=== PATIENT | female | born 1965 | race Caucasian/White ===

== ENCOUNTER 2016-12-14 16:20 | Emergency (ER) | payer MEDICARE, MEDICAID ==
[2016-12-14 16:45] VITALS: BP 137/80
--- NOTE | 2016-12-14 17:07 | UC ---
UC Dental HPI - HPI Summary HPI Summary: Left upper gum check pain worsening over the week hurts to use her bipap at night no uri sx - History of Current Complaint Chief Complaint: UCGeneralIllness Stated Complaint: DENTAL PAIN Time Seen by Provider: 12/14/16 16:53 Hx Obtained From: Patient Hx Last Menstrual Period: 11/24/16 ?: No Onset/Duration: Gradual Onset, Lasting Weeks - 1, Still Present Severity: Moderate Pain Intensity: 5 Pain Scale Used: 0-10 Numeric Aggravating: Chewing Alleviating: Nothing Related History: Swelling - Allergies/Home Medications Allergies/Adverse Reactions: Allergies Allergy/AdvReac Type Severity Reaction Status Date / Time No Known Allergies Allergy Verified 11/02/13 07:55 Home Medications: Home Medications Cholecalciferol [Vitamin D] 4,000 12/14/16 [History] PMH/Surg Hx/FS Hx/Imm Hx Previously Healthy: No - Obesity Endocrine History Of: Reports: Diabetes - TYPE II - ON ORAL MEDICATION FOR Cardiovascular History Of: Reports: Cardiac Disorders - Cardiomegaly, Hypertension - ON MEDICATION FOR Respiratory History Of: Reports: Asthma - ROUTINE AND PRN INHALERS Psychological History Of: Reports: Anxiety - ROUTINE AND PRN MEDICATION FOR, Depression - ROUTINE AND PRN MEDICATION FOR - Surgical History Surgical History: Yes Surgery Procedure, Year, and Place: UMBILICAL HERNIA REPAIR-[facility]-. Right ganglion cyst. Appendectomy - Family History Known Family History: Positive: Hypertension, Diabetes - Social History Occupation: Disabled Lives: Alone Alcohol Use: Weekly Alcohol Amount: one drink weekly Substance Use Type: None Smoking Status (MU): Never Smoked Tobacco Have You Smoked in the Last Year: No Review of Systems Constitutional: Negative Skin: Negative Eyes: Negative ENT: Dental Pain - left upper lateral teeth and jaw Respiratory: Negative Cardiovascular: Negative Gastrointestinal: Negative Genitourinary: Negative Motor: Negative Neurovascular: Negative Musculoskeletal: Negative Neurological: Negative Psychological: Negative All Other Systems Reviewed And Are Negative: Yes Physical Exam Triage Information Reviewed: Yes Appearance: Well-Appearing, Pain Distress - mild, Obese Vital Signs: Initial Vital Signs Temp 96.8 F 12/14/16 16:34 Pulse 92 12/14/16 16:34 Resp 22 12/14/16 16:34 BP 137/80 12/14/16 16:34 Pulse Ox 100 12/14/16 16:34 Vital Signs Reviewed: Yes Eye Exam: Normal Eyes: Positive: Conjunctiva Clear ENT Exam: Normal ENT: Positive: Normal ENT inspection, Hearing grossly normal, Pharynx normal, TMs normal. Negative: Nasal congestion, Nasal drainage, Tonsillar swelling, Tonsillar exudate, Trismus, Muffled/hoarse voice Dental Exam: Other Dental: Positive: Abscess @ - upper left lateral jaw Neck exam: Normal Neck: Positive: Supple, Nontender, No Lymphadenopathy Respiratory Exam: Normal Respiratory: Positive: Chest non-tender, Lungs clear, Normal breath sounds, No respiratory distress, No accessory muscle use Cardiovascular Exam: Normal Cardiovascular: Positive: RRR, No Murmur, Pulses Normal, Brisk Capillary Refill Musculoskeletal Exam: Normal Musculoskeletal: Positive: Strength Intact, ROM Intact, No Edema Neurological Exam: Normal Neurological: Positive: Alert, Muscle Tone Normal Psychological Exam: Normal Skin Exam: Normal Dental Complaint Course/Dx - Course Course Of Treatment: Amoxilillin follow with dentist pain meds as rx'd follow with dentist this week - Differential Dx/Diagnosis Differential Diagnosis/Dx: Dental Abscess, Dental Caries, Fractured Tooth, Odontogenic Pain Provider Diagnoses: Dental Pain, Dental Abscess Discharge - Discharge Plan Condition: Stable Disposition: HOME Prescriptions: Amoxicillin/Clavulanate TAB* [Augmentin TAB 875*] 875 mg PO BID #20 tab Patient Education Materials: Dental Abscess (ED) Referrals: Barbra Meredith MD [Primary Care Provider] - If Needed
== END 2016-12-14 17:15 | disposition home or self-care (01) ==
LOC: UCEAST 16:20
DX: K04.7 Periapical abscess without sinus (principal); K08.89 Other specified disorders of teeth and supporting structures; E11.9 Type 2 diabetes mellitus without complications; Z79.84 Long term (current) use of oral hypoglycemic drugs; I10 Essential (primary) hypertension
CPT/HCPCS: 99212; G0463

== ENCOUNTER 2019-09-07 10:38 | Inpatient (IN) | payer MEDICARE, MEDICAID ==
[2019-09-07] MEDS ORDERED: NS 0.9% 1000 ML** 1,000 ML IV ONE ×2 (10:48→11:59)
[2019-09-07 11:19] LABS: Hematocrit 39 % (35-47); Hemoglobin 12.9 g/dL (12.0-16.0); Mean Corpuscular HGB Conc 33 g/dL (31-36); Mean Corpuscular Hemoglobin 27 pg (27-31); Mean Corpuscular Volume 80 fL (80-97); Red Blood Count 4.88 10^6 /uL (3.70-4.87); Red Cell Distribution Width 16 % (10-15); White Blood Count 14.3 10^3/uL (3.5-10.8)
[2019-09-07 11:53] LABS: Albumin 3.2 g/dL (3.2-5.2); Albumin/Globulin Ratio 0.9 (1-3); BUN/Creatinine Ratio 30.7 (8-20); C Reactive Protein 332.66 mg/L (<8.01); Calcium 8.9 mg/dL (8.6-10.3); EGFR African American 20.1 (>60); EGFR Non-African American 16.6 (>60); Globulin 3.4 g/dL (2-4); Potassium 4.6 mmol/L (3.5-5.0); Total Bilirubin 1.3 mg/dL (0.2-1.0); Total Protein 6.6 g/dL (6.4-8.9)
[2019-09-07 11:56] LABS: ABS Eosinophils 0.2 10^3/ul (0-0.6); ABS Lymphocytes 0.5 10^3/ul (1.0-4.8); ABS Monocytes 0.5 10^3/ul (0-0.8); Eosinophil % 1.1 %; Lymphocyte % 3.8 %; Nucleated Red Blood Cells % 0.1; Platelet Count 62 10^3/uL (150-450)
[2019-09-07] MEDS ORDERED: Piperacillin/Tazobac ADVAN(*) 3.375 GM in NS 0.9% 100 ML* 100 ML IVPB ONE ×2 (13:11→14:34)
[2019-09-07] MEDS ORDERED: metroNIDAZOLE IV 500 MG/100ML* 500 MG/100 ML BAG IVPB ONE (13:16)
[2019-09-07] MEDS ORDERED: Vancomycin(*) 2,000 MG in NS 0.9% 500 ML* 500 ML IVPB ONE (13:16)
[2019-09-07] MEDS ORDERED: Vancomycin(*) 1,000 MG in NS 0.9% 250 ML* 250 ML IVPB ONE (14:34)
[2019-09-07 14:38] LABS: Urine Appearance Cloudy; Urine Bacteria 1+ (Absent); Urine Bilirubin Negative (Negative); Urine Blood 3+ (Negative); Urine Color Amber; Urine Glucose Negative (Negative); Urine Ketones Negative (Negative); Urine Nitrite Negative (Negative); Urine Protein 2+(100 mg/dL) (Negative); Urine Red Blood Cell 3+(>10/hpf) (Absent); Urine Specific Gravity 1.015 (1.010-1.030); Urine Squamous Epithelial Cell Present (Absent); Urine Urobilinogen Negative (Negative); Urine White Blood Cell 3+(>20/hpf) (Absent)
[2019-09-07] MEDS ORDERED: Albuterol HFA INHALER* 8 gm MDI INH PRN (14:52)
[2019-09-07] MEDS ORDERED: Dextrose 50% VIAL 50 ml IV PUSH PRN (14:54)
[2019-09-07] MEDS ORDERED: Vancomycin per Pharmacy* NOTE FOLLOW UP SCH (15:00)
[2019-09-07] MEDS ORDERED: Zosyn per Pharmacy* NOTE FOLLOW UP SCH (15:00)
[2019-09-07] MEDS ORDERED: NS 0.9% 1000 ML** 1,000 ML IV SCH (15:00)
--- NOTE | 2019-09-07 15:24 | CONSULT ---
Consult Consult: Consultation: General Surgery Chief Complaint: Left Hip Pain HPI:54 yo morbidly obese female presented to the ED C/O Left Hip pain. Reports being on Macrobid for a UTI since seeing her PMD last CT scan done in the ED showed questionable findings PMH: DM, ^ Chol, Anxiety/Depression, Asthma, Morbid Obesity, Sleep Apnea PSH: Ganglion Cyst SOCIAL: TOB denies ETOH denies DRUGS denies FAMILY HISTORY: Mother in good health, Father , prostate Cancer & Alzheimers ALLERGIES: NKDA MEDICATIONS: Per JAN ROS: C/O Left outer hip pain with ROM LLE, PHYSICAL EXAM: General: Morbidly Obese female seen on bed in ED, doesn't ambulate well, C/O left hip pain with attempt at movement for exam VS: Temp Pulse Resp BP Pulse Ox 97.6 F 109 24 95/77 95 09/07/19 10:42 09/07/19 13:44 09/07/19 10:42 09/07/19 13:44 09/07/19 13:44 HEENT: NCAT CHEST: CTA CVS: Tachycardic ABD: Morbidly Obese. Tender to palpation only in Left Inguinal region M/S: Tender to palp Left Hip Greater troch region, left hip pain with ROM LLE, no errythema NEURO: Grossly NL 12.9 129 94 91 LABS: 14.3 >-----< -----/------/------<322 Lactic Acid 1.7 CRP 332.66 39 4.6 21 2.96 Abnormal Lab Results 09/07/19 09/07/19 09/07/19 10:53 10:53 14:15 WBC 14.3 H RBC 4.88 H Hgb 12.9 Hct 39 MCV 80 MCH 27 MCHC 33 RDW 16 H Plt Count 62 L MPV Not Reportable Neut % (Auto) 91.3 Lymph % (Auto) 3.8 [place] % (Auto) 3.7 Eos % (Auto) 1.1 Baso % (Auto) 0.1 Absolute Neuts (auto) 13.0 H Absolute Lymphs (auto) 0.5 L Absolute Monos (auto) 0.5 Absolute Eos (auto) 0.2 Absolute Basos (auto) 0.0 Absolute Nucleated RBC 0.0 Nucleated RBC % 0.1 Sodium 129 L Potassium 4.6 Chloride 94 L Carbon Dioxide 21 L Anion Gap 14 H BUN 91 H Creatinine 2.96 H Est GFR ( Amer) 20.1 Est GFR (Non-Af Amer) 16.6 BUN/Creatinine Ratio 30.7 H Glucose 322 H Lactic Acid Calcium 8.9 Total Bilirubin 1.30 H AST 58 H ALT 64 H Alkaline Phosphatase 167 H C-Reactive Protein 332.66 H Total Protein 6.6 Albumin 3.2 Globulin 3.4 Albumin/Globulin Ratio 0.9 L Urine Color Svetlana Urine Appearance Cloudy Urine pH 5.0 Ur Specific [place] 1.015 Urine Protein 2+(100 mg/dl) A Urine Ketones Negative Urine Blood 3+ A Urine Nitrate Negative Urine Bilirubin Negative Urine Urobilinogen Negative Ur Leukocyte Esterase 3+ A Urine WBC (Auto) 3+(>20/hpf) A Urine RBC (Auto) 3+(>10/hpf) A Ur Squamous Epith Cells Present A Urine Bacteria 1+ A Urine Glucose Negative RESULTS: CT : IMPRESSION: 1. LIMITED STUDY. 2. THERE IS INFLAMMATORY CHANGE CENTERED WITHIN THE LEFT PELVIC SIDEWALL TRACKING FROM THE THIGH INTO THE PSOAS MUSCLE GAS DENSITY NOTED TRACKING ALONG THE MUSCULATURE. THIS MAY BE COMPOSITION OF RECENT INSTRUMENTATION OR MAY INDICATE THE PRESENCE OF A GAS FORMING ORGANISM. 3. ADDITIONALLY, THERE IS LEFT-SIDED HYDRONEPHROSIS WHICH MAY BE A COMPLICATION OF THE INFLAMMATORY/INFECTIOUS PROCESS OF THE LEFT LOWER QUADRANT. 4. GIVEN THE ABOVE FINDINGS, RECOMMEND CONSIDERATION OF FURTHER EVALUATION WITH CONTRAST-ENHANCED CT OF THE ABDOMEN AND PELVIS. 5. HEPATOMEGALY WITH FATTY INFILTRATION OF LIVER. 6. LEFT ADRENAL ADENOMA. ASSESSMENT: Left Hydronephrosis S/P UTI, Elevated WBC, CT Findings Left Psoas muscle soft tissue air, no abdominal source PLAN: CT was reviewed by Dr You with Radiology. Need for Urological Evaluation was determined. No surgical issues currently found. Possible need for transfer to Tertiary care facility due to patients body habitus. Above was D/W Patient, Dr You , and Mikhail SPENCER. Patient was also seen and examined by Dr You All questions were answered A total of 45 minutes was spent in examining patient, reviewing studies, clinical assessments.
[2019-09-07] MEDS: Morphine INJ* 2 MG/ML 1 ML SYRINGE (TWO MG - NEW SYRINGE VERSION) IV PRN ×3 (15:38→21:22)
--- NOTE | 2019-09-07 16:00 | CONSULT ---
Consult Consult: Consultation Note -- Critical Care Requesting Physician: Dr Patel Reason for consult: severe sepsis Limitations in history/physical: none Date of consult: 09/07/2019 HPI: 54y F w/pmhx of morbid obesity, DM, HLD, Depression/anxiety, asthma, sleep apnea; comes to ER for difficulty walking x2 days. She states Friday (4 days back) she had left hip pain, progressed to difficulty walking on Friday. Today unable to stand due to left hip pain. No back pain. Fevers+. No cough. SOB+. No sputum. No nausea/vom. Dec po intake+. Decreased urination, dark+.Was started on macrobid last for possible urine infection. In ER she was tachycardic, BP 130s, afebrile, RR 24, on RA. Started on sepsis protocol with 2L IVF bolus, IV abx zosyn. CT abd/pelvis demonstrated inflammatory change from left thigh to pelvis to left psoas muscle with gaseous formation, and noted to have left mild hydronephrosis. Surgery consulted and advised no acute surgical intervention at this time. Urology consulted and concerned about cysto given low plt count. ED/floor Course: as above ROS: negative except for pertinent positives mentioned above PMHx: DM, Morbid obesity, HLD, Depression, anxiety, asthma, sleep apnea PSHx: ganglion cyst removal Family History: none signficant Social History: Alcohol-denies, Smoking-denies, Drug use-denies Allergies: Allergies Allergy/AdvReac Type Severity Reaction Status Date / Time No Known Allergies Allergy Verified 11/02/13 07:55 Home Medications: Albuterol HFA INHALER* [Ventolin HFA Inhaler*] 2 puff INH Q4H PRN 10/22/13 [ History Confirmed 09/07/19] Fluticasone HFA 110 mcg(NF) [Flovent HFA 110 mcg(NF)] 2 puff INH BID 10/22/13 [ History Confirmed 09/07/19] LoraTADine TAB(NF) [Claritin 10 MG TAB(NF)] 10 mg PO DAILY 10/22/13 [History Confirmed 09/07/19] Naproxen TAB* [Naprosyn 375 mg TAB*] 375 mg PO QAM 10/22/13 [History Confirmed 09/07/19] Repaglinide TAB* [Prandin TAB*] 1 mg PO TID 10/22/13 [History Confirmed 09/07/19 ] Venlafaxine EXT RELEASE CAP* [Effexor Xr CAP*] 75 mg PO DAILY 10/22/13 [History Confirmed 09/07/19] Venlafaxine EXT RELEASE CAP* [Effexor Xr CAP*] 300 mg PO DAILY 10/22/13 [ History Confirmed 09/07/19] metFORMIN* [Glucophage 500 MG TAB *] 1,000 mg PO BID 10/22/13 [History Confirmed 09/07/19] Ezetimibe 10 mg PO DAILY 07/20/19 [History Confirmed 09/07/19] LORazepam TAB(*) [Ativan 0.5 MG TAB (*)] 1 mg PO BID 07/20/19 [History Confirmed 09/07/19] Losartan Potassium 1 tab PO DAILY 07/20/19 [History Confirmed 09/07/19] Simvastatin 80 mg PO BEDTIME 07/20/19 [History Confirmed 09/07/19] traMADol TAB* [Ultram*] 50 mg PO Q6HR PRN 07/20/19 [History Confirmed 09/07/19] Hemp Oil 1 drp SL DAILY 09/07/19 [History Confirmed 09/07/19] Multivitamins/Minerals TAB* [Theragran/minerals TAB*] 1 tab PO DAILY 09/07/19 [ History Confirmed 09/07/19] Nitrofurantoin Monohyd/M-Cryst [Macrobid 100 mg Capsule] 100 mg PO BID 09/07/19 [History Confirmed 09/07/19] Sitagliptin (NF) [Januvia (NF)] 50 mg PO DAILY 09/07/19 [History Confirmed 09/07] celeCOXIB CAP* [CeleBREX CAP*] 200 mg PO BID 09/07/19 [History Confirmed ] Tele: sinus tachy Vitals: Vital Signs Temp 97.6 F 09/07/19 10:42 Pulse 107 09/07/19 15:14 Resp 26 09/07/19 15:14 BP 118/77 09/07/19 15:14 Pulse Ox 97 09/07/19 15:14 Intake & Output 09/06/19 09/07/19 09/07/19 18:59 06:59 18:59 Weight 208.652 kg O2/Vent: RA Infusions: NS Current Medications: Albuterol (Ventolin Hfa Inhaler*) 2 puff INH Q4H PRN PRN Reason: SOB/WHEEZING Dextrose (Dextrose 50% Vial 50 Ml*) 25 ml IV PUSH .FOR FS < 60 - SS PRN PRN Reason: FS < 60 Fluticasone Propionate (Flovent Hfa 110 Mcg(Nf)) 2 puff INH BID [facility] Sodium Chloride (Ns 0.9% 1000 Ml) 1,000 mls @ 150 mls/hr IV PER RATE [facility] Piperacillin Sod/Tazobactam (Sod 3.375 gm/ Sodium Chloride) 100 mls @ 25 mls/ hr IVPB Q8H [facility] Insulin Glargine (Lantus(*)) 20 units SUBCUT Q24H [facility] Insulin Human Lispro (Humalog*) 0 units SUBCUT Q4HR [facility]; Protocol Lorazepam (Ativan Tab(*)) 1 mg PO BID [facility] Morphine Sulfate (Morphine Inj (Syringe))*) 1 mg IV Q1H PRN PRN Reason: SEVERE PAIN Pharmacy Consult (Vancomycin Per Pharmacy*) 1 note FOLLOW UP .VANC PER PHARMACY [facility]; Protocol Pharmacy Consult (Zosyn Per Pharmacy*) 1 note FOLLOW UP .ZOSYN PER PHARMACY [facility] Venlafaxine HCl (Effexor Xr Cap*) 300 mg PO DAILY [facility] Venlafaxine HCl (Effexor Xr Cap*) 75 mg PO DAILY [facility] Physical Exam: Constitutional: awake, alert, no distress, no diaphoresis, obese++ Head: normocephalic, atraumatic Eyes: no pallor, no icterus ENT: moist mucous membranes Neck: soft, supple, no jvd, no stridor CVS: normal rate, regular, no murmur Chest/Resp: bilateral air entry, no RRW, no acc muscle use Abdomen/GI: soft, tender lower quadrants+ nondistended, BS+ Ext/Msk: warm, pulses+, no edema; Left thigh tender+, no erythema/induration noted Skin: intact, warm Neuro: awake, alert, orientedx3, moving all extremities, no gross focal deficit Psych: normal affect Labs: Laboratory Results - last 24 hr 09/07/19 09/07/19 09/07/19 10:53 10:53 14:15 WBC 14.3 H RBC 4.88 H Hgb 12.9 Hct 39 MCV 80 MCH 27 MCHC 33 RDW 16 H Plt Count 62 L MPV Not Reportable Neut % (Auto) 91.3 Lymph % (Auto) 3.8 [place] % (Auto) 3.7 Eos % (Auto) 1.1 Baso % (Auto) 0.1 Absolute Neuts (auto) 13.0 H Absolute Lymphs (auto) 0.5 L Absolute Monos (auto) 0.5 Absolute Eos (auto) 0.2 Absolute Basos (auto) 0.0 Absolute Nucleated RBC 0.0 Nucleated RBC % 0.1 Sodium 129 L Potassium 4.6 Chloride 94 L Carbon Dioxide 21 L Anion Gap 14 H BUN 91 H Creatinine 2.96 H Est GFR ( Amer) 20.1 Est GFR (Non-Af Amer) 16.6 BUN/Creatinine Ratio 30.7 H Glucose 322 H Calcium 8.9 Total Bilirubin 1.30 H AST 58 H ALT 64 H Alkaline Phosphatase 167 H C-Reactive Protein 332.66 H Total Protein 6.6 Albumin 3.2 Globulin 3.4 Albumin/Globulin Ratio 0.9 L Urine Color Svetlana Urine Appearance Cloudy Urine pH 5.0 Ur Specific [place] 1.015 Urine Protein 2+(100 mg/dl) A Urine Ketones Negative Urine Blood 3+ A Urine Nitrate Negative Urine Bilirubin Negative Urine Urobilinogen Negative Ur Leukocyte Esterase 3+ A Urine WBC (Auto) 3+(>20/hpf) A Urine RBC (Auto) 3+(>10/hpf) A Ur Squamous Epith Cells Present A Urine Bacteria 1+ A Urine Glucose Negative Imaging: CT abd/pelvis 09/07 - inflammatory change left pelvic sidewall from thigh to psoas muscle with gas density; mild left hydronephrosis, left adrenal adenoma Assessment: 54y F w/pmhx of morbid obesity, DM, HLD, Depression/anxiety, asthma , sleep apnea; comes to ER for difficulty walking x2 days. She states Friday (4 days back) she had left hip pain, progressed to difficulty walking on Friday. Today unable to stand due to left hip pain. No back pain. Fevers+. No cough. SOB +. No sputum. No nausea/vom. Dec po intake+. Decreased urination, dark+.Was started on macrobid last for possible urine infection. In ER she was tachycardic, BP 130s, afebrile, RR 24, on RA. Started on sepsis protocol with 2L IVF bolus, IV abx zosyn. CT abd/pelvis demonstrated inflammatory change from left thigh to pelvis to left psoas muscle with gaseous formation, and noted to have left mild hydronephrosis. Surgery consulted and advised no acute surgical intervention at this time. Urology consulted and concerned about cysto given low plt count. -Severe Sepsis -Left thigh and psoas soft tissue infection -r/o nec fasc -Thrombocytopenia -ESTHER -Hyponatremia -Elevated LFTs -Mild Left hydronephrosis Obesity DM Sleep apnea Plan: Neuro- -alert -Delirium prec; avoid BDZ CVS- -BP stable, fluctuating low 100s; pendign LA level ; labs and imaging consistent with Severe Sepsis diagnosis -IVF bolus, cont IVF NS infusion 100cc/hr -check LA and trend -Empiric IV abx for deep soft tissue infection and +/- UTI -Maintain MAP>65 Resp- -Minimal tachypnea+; may be from metabolic demand -on RA now -nocturnal cpap for sleep apnea ordered -Wean Fio2 to keep sat>92% -Bronchodilators PRN, asp prec ID- afebrile. wbc 14. LA pending -CT abd/pelvis 09/07 with left thigh/pelvic ascending soft tissue infection; myositis? nec fasc? -blood cx -check urine cx also -empiric coverage with gram neg/pos and anaerobes; agree zosyn (day#1), vanco 2gm IV x1 (day#1), pharmacy to follow -will have surgical evaluation if required GI- -NPO for now -GI prophylaxis Renal- -ESTHER; multifactorial from sepsis, hypovolemia and left hydro/obstruction -IVF NS bolus 2 L; start NS infusion 100cc/hr -LA normal noted -Left hydro, may be associated with infection around psoas; urology followup; if hydro worse or UOP drops, may need intervention -noted low plt, will transfuse if cysto or perc neph needed, need to order from [place]. -discussed with urology; they recommend transfer to high level center -strict I/O, replete to keep K>4, Mg>2 -whyte + Heme- -hg stable -plt 60s; suspect this is acute drop from sepsis; no overt bleeding -if plan for OR will order plt transfusion -hold off chemical dvt proph Endo- Maintain BG<200, insulin protocol as needed Musculsk- pressure ulcer prophylaxis. Bedrest. -noted left thigh infection deep tissue with ascension to pelvis; d/w surgery; IV abx, unclear if this may progress and need repeat surgical interventions. They recommend transfer. Wounds- none Nutrition- NPO DVT prophylaxis: SCD GI prophylaxis: none indicated Central Line: - Arterial Line: - Whyte Cathetor: yes Disposition: discussed with surgery and with urology; at this time given possibility of deep infection which may even be nec fasc with potential for worsening and limitations of OR and possibility of worsenign clinical status recommendation for transfer to higher level of care with surgical evaluation and urological evaluation I discussed this with the patient who agrees. Patient Clinical Status: guarded Code Status: full code Total Critical Care time is 50 minutes, excluding procedures/teaching Uli Grijalva MD [employer] (Electronically Signed)
[2019-09-07] MEDS: NS 0.9% 1000 ML** 1,000 ML IV SCH ×2 (16:18→23:36)
[2019-09-07] MEDS: Insulin GLARGINE(*) 1 UNITS UNIT SUBCUT SCH (16:28)
--- NOTE | 2019-09-07 16:47 | PN ---
Progress Note - Progress Note Date of Service: 09/07/19 SOAP: Subjective: Patient seen and examined with TJ Mckeon History, workup and CT all reviewed Objective: Temp Pulse Resp BP Pulse Ox 97.8 F 108 19 122/70 91 09/07/19 15:46 09/07/19 15:46 09/07/19 16:30 09/07/19 16:30 09/07/19 16:30 PEX: Super morbidly obese Awake and alert, pleasant Abdomen [id number], no tenderness, no guarding, no peritoneal signs Left hip and upper thigh discomfort. Skin pink, no crepitance, skin changes, fluctuance or swelling. No drainage sites Labs reviewed--WBC elevated, elevated BUN/CR, thrombocytopenia, electrolyte derangements CT reviewed with radiology--no apparent intra-abdominal acute findings, enlarged left kidney with inflammation left retroperitoneum and left lateral pelvic wall, inflammation extending along left psoas muscle into upper lateral thigh--air bubbles noted in soft tissue, no obvious abscess. No apparent bowel involvement. Assessment: Sepsis CT findings as above Plan: Discussed with Dr. Patel, Dr. Yi ([employer]) and ER. No intra-abdominal source obvious for sepsis, possible urologic source. Concern is also with air and inflammation into soft tissue, may represent fulminant soft tissue infection -not certain etiology, possibly related to urinary source? She will require intensive care support. My recommendation would be transfer to a higher level of care due to her sepsis, morbid obesity, ARF and possible fulminant soft tissue infection that may require emergent surgical debridement and multiple surgical procedures for optimal care. This is not something that can be adequately managed here at [facility] [place]. I do not believe a laparotomy is indicated. Thank you for this consultation.
[2019-09-07 17:34] LABS: Urine Appearance Cloudy; Urine Bacteria 1+ (Absent); Urine Bilirubin Negative (Negative); Urine Blood 3+ (Negative); Urine Color Amber; Urine Glucose Negative (Negative); Urine Ketones Negative (Negative); Urine Nitrite Negative (Negative); Urine Protein 1+(30 mg/dL) (Negative); Urine Red Blood Cell 3+(>10/hpf) (Absent); Urine Specific Gravity 1.015 (1.010-1.030); Urine Squamous Epithelial Cell Present (Absent); Urine Urobilinogen Negative (Negative); Urine White Blood Cell 3+(>20/hpf) (Absent)
--- NOTE | 2019-09-07 17:51 | ED ---
Abdominal Pain/Female - HPI Summary HPI Summary: Patient is a 54-year-old female who presents emergency department for left hip pain and ongoing urinary symptoms. Patient states she started on of Macrobid for UTI on Friday. Denies any falls or injuries. Patient denies abdominal pain , fever, chest pain, shortness of breath. Symptoms are mild in severity. No current modifying factors. Past medical history of morbid obesity, diabetes. - History of Current Complaint Chief Complaint: EDUrogenitalProblems Stated Complaint: HIP PAIN / UTI PER EMS Time Seen by Provider: 09/07/19 10:40 Hx Obtained From: Patient Hx Last Menstrual Period: 11/24/16 Pain Intensity: 6 Pain Scale Used: 0-10 Numeric Allergies/Adverse Reactions: Allergies Allergy/AdvReac Type Severity Reaction Status Date / Time No Known Allergies Allergy Verified 11/02/13 07:55 Home Medications: Home Medications Hemp Oil 1 drp SL DAILY 09/07/19 [History Confirmed 09/07/19] Multivitamins/Minerals TAB* [Theragran/minerals TAB*] 1 tab PO DAILY 09/07/19 [ History Confirmed 09/07/19] Nitrofurantoin Monohyd/M-Cryst [Macrobid 100 mg Capsule] 100 mg PO BID 09/07/19 [History Confirmed 09/07/19] Sitagliptin (NF) [Januvia (NF)] 50 mg PO DAILY 09/07/19 [History Confirmed 09/07] celeCOXIB CAP* [CeleBREX CAP*] 200 mg PO BID 09/07/19 [History Confirmed ] PMH/Surg Hx/FS Hx/Imm Hx Previously Healthy: Yes Endocrine/Hematology History: Reports: Hx Diabetes - TYPE II - ON ORAL MEDICATION FOR Cardiovascular History: Reports: Hx Hypercholesterolemia, Hx Hypertension Respiratory History: Reports: Hx Asthma - ROUTINE AND PRN INHALERS, Hx Sleep Apnea - CPAP at home, Other Respiratory Problems/Disorders - PRN O2 WHEN SOB per pt report GI History: Comment Only: Other GI Disorders - ventral hernia repair Musculoskeletal History: Reports: Hx Arthritis - LEFT KNEE AND HIP, HANDS Sensory History: Reports: Hx Contacts or Glasses Denies: Hx Hearing Aid Opthamlomology History: Reports: Hx Contacts or Glasses Psychiatric History: Reports: Hx Anxiety - ROUTINE AND PRN MEDICATION FOR, Hx Depression - ROUTINE AND PRN MEDICATION FOR - Surgical History Surgery Procedure, Year, and Place: UMBILICAL HERNIA REPAIR-[facility] [place]-. Right ganglion cyst. Appendectomy Hx Anesthesia Reactions: No Infectious Disease History: No Infectious Disease History: Denies: Traveled Outside the [place] in Last 30 Days - Family History Known Family History: Positive: Hypertension, Diabetes, Non-Contributory - Social History Occupation: Unemployed Lives: With Family Alcohol Use: None Alcohol Amount: one drink weekly Substance Use Type: Reports: None Smoking Status (MU): Never Smoked Tobacco Have You Smoked in the Last Year: No Review of Systems Constitutional: Negative Cardiovascular: Negative Negative: Palpitations, Chest Pain Respiratory: Negative Negative: Shortness Of Breath Gastrointestinal: Negative Positive: dysuria Positive: Other - Left hip pain Skin: Negative Neurological: Negative All Other Systems Reviewed And Are Negative: Yes Physical Exam Triage Information Reviewed: Yes Vital Signs On Initial Exam: Initial Vitals Temp Pulse Resp BP Pulse Ox 97.6 F 114 24 131/53 94 09/07/19 10:42 09/07/19 10:42 09/07/19 10:42 09/07/19 10:42 09/07/19 10:42 Vital Signs Reviewed: Yes Appearance: Positive: Well-Appearing - Pt. lying on bed in NAD. Morbidly obese. Skin: Positive: Warm, Dry Head/Face: Positive: Normal Head/Face Inspection Eyes: Positive: Normal, EOMI Neck: Positive: Supple Respiratory/Lung Sounds: Positive: Clear to Auscultation, Breath Sounds Present Cardiovascular: Positive: Normal, RRR Abdomen Description: Positive: Other: - Morbidly obese. Abd. is soft with marked tenderness to LLQ and LUQ. Musculoskeletal: Positive: Normal, Strength/ROM Intact Neurological: Positive: Normal, CN Intact II-III Psychiatric: Positive: Affect/Mood Appropriate Diagnostics - Vital Signs Vital Signs Temp Pulse Resp BP Pulse Ox 09/07/19 14:14 91/69 09/07/19 13:44 109 95/77 95 09/07/19 13:31 109 97 09/07/19 13:30 109 98/82 95 09/07/19 12:00 111 95 09/07/19 11:14 133/88 09/07/19 11:00 115 88 09/07/19 10:44 115 131/53 95 09/07/19 10:43 116 98 09/07/19 10:42 97.6 F 114 24 131/53 94 - Laboratory Lab Results: Lab Results 09/07/19 09/07/19 09/07/19 Range/Units 10:53 10:53 14:15 WBC 14.3 H (3.5-10.8) 10^3/uL RBC 4.88 H (3.70-4.87) 10^6 /uL Hgb 12.9 (12.0-16.0) g/dL Hct 39 (35-47) % MCV 80 (80-97) fL MCH 27 (27-31) pg MCHC 33 (31-36) g/dL RDW 16 H (10-15) % Plt Count 62 L (150-450) 10^3/uL MPV Not Reportable Neut % (Auto) 91.3 % Lymph % (Auto) 3.8 % [place] % (Auto) 3.7 % Eos % (Auto) 1.1 % Baso % (Auto) 0.1 % Absolute Neuts (auto) 13.0 H (1.5-7.7) 10^3/ul Absolute Lymphs (auto) 0.5 L (1.0-4.8) 10^3/ul Absolute Monos (auto) 0.5 (0-0.8) 10^3/ul Absolute Eos (auto) 0.2 (0-0.6) 10^3/ul Absolute Basos (auto) 0.0 (0-0.2) 10^3/ul Absolute Nucleated RBC 0.0 10^3/ul Nucleated RBC % 0.1 Hem Pathologist Commnt Sodium 129 L (135-145) mmol/L Potassium 4.6 (3.5-5.0) mmol/L Chloride 94 L (101-111) mmol/L Carbon Dioxide 21 L (22-32) mmol/L Anion Gap 14 H (2-11) mmol/L BUN 91 H (6-24) mg/dL Creatinine 2.96 H (0.51-0.95) mg/dL Est GFR ( Amer) 20.1 (>60) Est GFR (Non-Af Amer) 16.6 (>60) BUN/Creatinine Ratio 30.7 H (8-20) Glucose 322 H (70-100) mg/dL Calcium 8.9 (8.6-10.3) mg/dL Total Bilirubin 1.30 H (0.2-1.0) mg/dL AST 58 H (13-39) U/L ALT 64 H (7-52) U/L Alkaline Phosphatase 167 H (34-104) U/L C-Reactive Protein 332.66 H (<8.01) mg/L Total Protein 6.6 (6.4-8.9) g/dL Albumin 3.2 (3.2-5.2) g/dL Globulin 3.4 (2-4) g/dL Albumin/Globulin Ratio 0.9 L (1-3) Urine Color Svetlana Urine Appearance Cloudy Urine pH 5.0 (5-9) Ur Specific [place] 1.015 (1.010-1.030) Urine Protein 2+(100 mg/dl) A (Negative) Urine Ketones Negative (Negative) Urine Blood 3+ A (Negative) Urine Nitrate Negative (Negative) Urine Bilirubin Negative (Negative) Urine Urobilinogen Negative (Negative) Ur Leukocyte Esterase 3+ A (Negative) Urine WBC (Auto) 3+(>20/hpf) A (Absent) Urine RBC (Auto) 3+(>10/hpf) A (Absent) Ur Squamous Epith Cells Present A (Absent) Urine Bacteria 1+ A (Absent) Urine Glucose Negative (Negative) Result Diagrams: 09/07/19 10:53 09/07/19 10:53 Lab Statement: Any lab studies that have been ordered have been reviewed, and results considered in the medical decision making process. Abdominal Pain Fem Course/Dx - Course Course Of Treatment: Pt. presenting with complaints of dysuria and left hip pain. Afebrile. Mildly tachycardic. On exam pt. has moderate tenderness to left side of abd. Labs and CT ordered for further evaluation. WBC 14.3, platelets 62 , Na 129, cl 94, anion gap 14, BUN 91, cr. 2.96, glucose 322, LFTs slightly elevated, CRP 332. CT per radiology: IMPRESSION: 1. LIMITED STUDY. 2. THERE IS INFLAMMATORY CHANGE CENTERED WITHIN THE LEFT PELVIC SIDEWALL TRACKING FROM. THE THIGH INTO THE PSOAS MUSCLE GAS DENSITY NOTED TRACKING ALONG THE MUSCULATURE. THIS MAY. BE COMPOSITION OF RECENT INSTRUMENTATION OR MAY INDICATE THE PRESENCE OF A GAS FORMING. Case discussed with Dr. Roman who recommends starting pt. on vanco, zosyn, and flagyl. Case discussed initially with Dr. You, surgery, at 1259. He will see pt. in ED but does not feel it is a surgical case at this time but he will exam pt. in ED. Case discussed with Dr. Wheeler, uro., at 1319. He feels pt. may need nephro tube or stent given hydro. He recommends consultation with IR. Case discussed with Dr. Helm who does not feel neph tube is indicated at this time. Case discussed with Dr. Grijalva , histopathology technician, who feels pt. can be admitted to the floor. Case discussed with Dr. Patel who examined pt. and feels they need to be in ICU. Pt. ultimately admitted to the ICU. - Diagnoses Differential Diagnosis: Positive: Appendicitis, Bowel Obstruction, Constipation , Diverticulitis, Renal Colic, Urinary Tract Infection Provider Diagnoses: Sepsis, Soft tissue infection, Acute renal injury, Morbid obesity - Critical Care Time Critical Care Time: 30-74 min - 45 minutes critical care including direct pt. care and consultation. Excludes billable procedures. Discharge ED - Sign-Out/Discharge Documenting (check all that apply): Patient Departure All imaging exams completed and their final reports reviewed: No - Discharge Plan Condition: Stable Disposition: ADMITTED TO [facility] - Billing Disposition and Condition Condition: STABLE Disposition: Admitted to [facility]
[2019-09-07] MEDS: ZOSYN 3.375 GM Q8H per EXTENDED INFUSION IVPB SCH ×2 (18:15)
[2019-09-07] MEDS: Insulin LISPRO* 1 UNITS UNIT SUBCUT SCH ×2 (18:34→21:38)
--- NOTE | 2019-09-07 19:00 | HP ---
CC: Dr. Meredith; Dr. You; Dr. Grijalva * HISTORY AND PHYSICAL: DATE OF ADMISSION: 09/07/19 TIME OF EVALUATION: 2:30 p.m. PRIMARY CARE PROVIDER: Dr. Meredith. CONSULTING GENERAL SURGEON: Dr. You. PRINTING FILM STRIPPER: Dr. Grijalva. CHIEF COMPLAINT: "My left hip hurts." HISTORY OF PRESENT ILLNESS: Mrs. Serrano is a 54-year-old old female with a past medical history of super morbid obesity with a BMI of 79, type 2 diabetes, depression, asthma, hypertension, and hyperlipidemia who presented to the emergency room with complaints of left hip pain. The patient states that 5 days ago she noted some hematuria. She went to see her primary care provider and was seen by Dr. Watt, who ordered some tests and told her that she probably had an urinary tract infection. The patient states that at that point her only symptom was hematuria. She states the next day she developed malaise, body aches, left hip pain, and dysuria and urinary frequency. She states that she contacted her PCP's office, was told that she did have a urinary infection, and was prescribed Macrobid that she started taking the same day. She states that the symptoms persisted and over the weekend, she felt worse. The left hip pain became severe to the point that she was not able to stand up anymore, so today she decided to call 911 and come in for further evaluation. In the emergency room, her workup was suspicious for severe sepsis secondary to intraabdominal source, likely a psoas infectious process, so the hospitalist service was called for further evaluation. During my evaluation, the patient's blood pressure was lower than before, she became more tachypneic, and at that point, I requested a consultation with critical care (Dr. Grijalva) to also evaluate the patient. PAST MEDICAL HISTORY: 1. Super morbid obesity with a BMI of 79. 2. Type 2 diabetes. 3. Hypertension. 4. Hyperlipidemia. 5. Depression. 6. Obstructive sleep apnea, on CPAP at home. PAST SURGICAL HISTORY: The patient stated she had an appendectomy when she was a kid, but otherwise no other surgeries. MEDICATION LIST: 1. Albuterol HFA 2 puffs inhaled q.4 hours p.r.n. for shortness of breath. 2. Celebrex 200 mg p.o. b.i.d. 3. Ezetimibe 10 mg p.o. daily. 4. Flovent HFA 110 mcg 2 puffs inhaled b.i.d. 5. Hemp oil 1 drop sublingual daily. 6. Loratadine 10 mg p.o. daily. 7. Lorazepam 1 mg p.o. b.i.d. 8. Losartan 100 mg p.o. daily. 9. Metformin 1000 mg p.o. b.i.d. 10. Multivitamin 1 tablet p.o. daily 11. Naproxen 375 mg p.o. daily. 12. Macrobid 100 mg p.o. b.i.d. 13. Nitrofurantoin 100 mg p.o. b.i.d. 14. Repaglinide 1 mg p.o. t.i.d. 15. Simvastatin 80 mg p.o. at bedtime. 16. Januvia 50 mg p.o. daily. 17. Tramadol 50 mg p.o. q.6 hours p.r.n. for pain. 18. Effexor XR 375 mg p.o. daily. ALLERGIES: No known drug allergies. FAMILY HISTORY: The father passed from prostate cancer. SOCIAL HISTORY: The patient denies tobacco and drug use. She states that occasionally she has alcohol. Surrogate decision maker is her mother, Ara Serrano; phone number is [phone]. REVIEW OF SYSTEMS: A 14-point review of systems was performed and all the pertinent negatives and positives are in the HPI. PHYSICAL EXAMINATION GENERAL: The patient is a super morbid obese female, lying on the ED stretcher , in mild distress secondary to pain. VITAL SIGNS: Temperature 97.6, heart rate is 109, respiratory rate is 16, oxygen saturation is 95% on 2 L nasal cannula, blood pressure is 95/77. HEENT: Pupils are equal. Moist mucous membranes. CHEST: Breath sounds bilaterally with no added sounds, but diminished at the bases and the whole physical exam is difficult due to the body habitus. CVS: Normal S1, S2. Regular rate and rhythm. ABDOMEN: Morbidly obese with significant pannus. As far as I can see, there is no skin breakdown. I was able to lift her pannus and she had mild erythema in the inguinal folds, but no open areas that I could find. EXTREMITIES: No edema. NEUROLOGIC: She is alert and oriented x3. Able to move all 4 extremities. LABORATORY AND IMAGING DATA: The patient had a CBC that showed WBC 14.3, hemoglobin 12.9, hematocrit 39, platelets 62. Chemistry showed a sodium of 129 , potassium 4.6, chloride of 94, bicarb of 21, anion gap of 14, BUN 91, creatinine of 2.9, glucose of 322, calcium 0.96. LFTs showed total bilirubin of 1.3, AST 68, ALT 64, alk phos 167 with CRP of 332. No urinalysis was sent as of now. CT of the abdomen and pelvis was a limited study without p.o. or IV contrast and it showed inflammatory change centered within the left pelvic sidewall tracking from the thigh into the psoas muscle. Gas density noted tracking along the musculature. This may be composition of recent instrumentation or may indicate the presence of a gas-forming organism. Additionally, there is left- sided hydronephrosis, which may be a complication of the inflammatory/ infectious process of the left lower quadrant. Hepatomegaly with fatty infiltration of the liver and left adrenal adenoma. ASSESSMENT AND PLAN: Mrs. Serrano is a 54-year-old female with a past medical history of super morbid obesity, type 2 diabetes, hypertension, hyperlipidemia, depression, and recently diagnosed with a urinary tract infection who presented to the emergency room with complaints of left hip pain and found to have severe sepsis secondary to a left psoas muscle myositis of unclear etiology. 1. Severe sepsis. The patient meets sepsis criteria with tachycardia, tachypnea, and leukocytosis. She has signs of end-organ damage with a creatinine of 2.96. The patient also has thrombocytopenia and LFT elevation. The patient will be admitted to the intensive care unit and the care will be transferred to Dr. Grijalva. 2. Psoas muscle myositis. The etiology of this finding is unclear at this time. Due to her renal function, she had a CT without contrast. Although it is clear that she has an inflammatory process of the psoas including some gas, the source is unclear. I had multiple conversations with urology (Dr. Wheeler) and general surgery (Dr. You), and there was a question of transferring the patient to a higher level of care. I discussed these concerns with Dr. Grijalva, and he feels that he can manage the patient here. If she needs platelets transfusion, he would be able to do it and he thinks she would do better being stabilized first and then, if necessary, transferred for procedures. The patient 's CRP is very elevated at 332 and we will trend it. At this point, I am transferring the patient's care to Dr. Grijalva. She will receive aggressive IV fluid resuscitation, vancomycin, and Zosyn. She had a difficult time with IV access in the emergency room and she will need a central line. At this point, blood cultures and lactic acid were not yet sent due to difficulty obtaining a blood sample. 3. Type 2 diabetes. It is uncontrolled. I will check an A1c. For now, she will be maintained with Lantus and lispro sliding scale. 4. Thrombocytopenia. I suspect consumption in the setting of severe sepsis. There are no active signs of bleeding at this time. 5. Acute kidney injury. The patient's CT does show mild hydronephrosis on the left, but this is not enough to explain her worsening renal failure. I suspect this is a combination of acute tubular necrosis in the setting of severe sepsis and also drug insult as the patient is on losartan and NSAIDs as an outpatient. Those will all be held. 6. Transaminitis. Suspect secondary to sepsis, but her CT also shows fatty infiltration of the liver. Infectious disease consultation was requested. 7. Obstructive sleep apnea. The patient will be continued on CPAP. 8. DVT prophylaxis. The patient has a score of 3 on the DVT Prophylaxis Assessment Guide. Due to her thrombocytopenia and possibility of procedures, we will hold off on heparin for now. She will have SCDs. 9. Code status is full. TIME SPENT: Approximately 70 minutes of critical care time were spent to complete this admission. [id number]/[facility] #: [id number] CORNELIUS
--- NOTE | 2019-09-07 19:07 | CONS ---
CC: Dr. Meredith * UROLOGY CONSULTATION: DATE OF CONSULT: 09/07/19 REQUESTING PHYSICIAN: Dr. Jazmine Kumari, DIAGNOSES: 1. Left hydronephrosis. 2. Recent urinary tract infection. 3. Possible pelvic-psoas abscess. HISTORY OF PRESENT ILLNESS: Marleni Serrano is a 54-year-old diabetic with morbid obesity who has had 4 to 5 days symptoms of left hip pain which is progressively getting worse and affecting her ability to ambulate. She initially had dysuria and gross hematuria and was seen by primary care provider at [facility] and initially was treated with urinary analgesics and subsequently started on oral antibiotics last week. In spite of taking the antibiotics, she felt that her symptoms were progressively worsening and then over the last 4 to 5 days, she has had the increasing left hip pain. She denies any fever and was eventually evaluated in the emergency room where she was noted on CT scan to have mild left hydronephrosis without any urolithiasis. Of note, she had what appears to be an abscess in the pelvis on the left side , possibly a psoas abscess which may be tracking up from the area of the left upper extremity and possibly compressing the left ureter. On review of her labs, her creatinine is 2.98 and her platelet count is significantly reduced at 60,000. I reviewed the CT scan personally and had a detailed discussion with Dr. Grijalva in the ICU regarding the management options for this patient. I suspect that she will require some form of decompression of the left collecting system either in the form of a left ureteral stent or a left percutaneous nephrostomy tube. In addition, I think she may benefit from drainage of the pelvic abscess which potentially could be done by Interventional Radiology. Both Dr. Kumari and Dr. Grijalva feel that she would not currently be a candidate to go to the operating room for left stent insertion in which case the next best option would be a left nephrostomy tube but for that she will first require replacement of platelets as placing a nephrostomy tube with such a low platelet count certainly would have a higher risk of bleeding complications. Because of these multiple issues including requirement for platelets and requirement possibly for Interventional Radiology, it is felt that she may benefit from transfer to a tertiary care center and this is being discussed with and arranged by Dr. Grijalva at the present time. I am available if needed to place a left stent at anything in this lady with a complex medical history but that would require a trip to the operating room and anesthesia. [id number]/[facility] #: [id number] CORNELIUS
--- NOTE | 2019-09-07 19:10 | PN ---
Sepsis Event Evaluation Date of Evaluation: 09/07/19 Time of Evaluation: 18:00 Current Stage of Sepsis: Severe Sepsis Vital Signs - Last 12 Hours: Vital Signs - 12 hr Temp Pulse Resp BP Pulse Ox 09/07/19 18:00 99.5 F 107 22 93 09/07/19 17:30 99.5 F 106 20 117/66 94 09/07/19 17:00 22 103/67 93 09/07/19 16:30 19 122/70 91 09/07/19 16:15 19 119/66 90 09/07/19 16:07 22 124/63 93 09/07/19 16:05 6 09/07/19 16:00 20 09/07/19 15:46 97.8 F 108 16 115/56 95 09/07/19 15:45 108 27 115/56 96 09/07/19 15:43 99 F 99 22 124/63 92 09/07/19 15:38 16 09/07/19 15:14 107 26 118/77 97 09/07/19 15:11 105 20 103/74 89 09/07/19 15:10 21 09/07/19 14:14 91/69 09/07/19 13:44 109 95/77 95 09/07/19 13:31 109 97 09/07/19 13:30 109 98/82 95 09/07/19 12:00 111 95 09/07/19 11:14 133/88 09/07/19 11:00 115 88 09/07/19 10:44 115 131/53 95 09/07/19 10:43 116 98 09/07/19 10:42 97.6 F 114 24 131/53 94 Lactic Acid: 09/07/19 15:07 Lactic Acid 1.7 - Cardiopulmonary Exam Capillary Refill: Immediate Respiratory: Symmetrical Chest Expansion and Respiratory Effort, Clear to Auscultation Cardiovascular: NL Sounds; No Murmurs; No JVD, RRR, No Edema - Peripheral Pulse Exam Radial Pulses: Bilateral Normal Pedal Pulses: Bilateral Normal Popliteal Pulses: Bilateral Normal - Skin Exam Skin Exam: Normal Turgor - [place] Coma Scale Best Eye Response: 4 - Spontaneous Best Motor Response: 6 - Obeys Commands Best Verbal Response: 5 - Oriented Coma Scale Total: 15 Assess/Plan/Problems-Billing Assessment:
[2019-09-07] MEDS: Mometasone 220 MCG MDI INH SCH (19:22)
[2019-09-07] MEDS: LORazepam TAB(*) 0.5 MG PO SCH (21:22)
[2019-09-07] MEDS: Nystatin TOP POWDER* 15 GM BTL TOPICAL SCH (23:23)
[2019-09-08] MEDS: Insulin LISPRO* 1 UNITS UNIT SUBCUT SCH ×6 (02:23→21:47)
[2019-09-08] MEDS: ZOSYN 3.375 GM Q8H per EXTENDED INFUSION IVPB SCH ×6 (02:23→17:46)
[2019-09-08] MEDS: Nystatin TOP POWDER* 15 GM BTL TOPICAL SCH ×2 (05:52→14:48)
[2019-09-08] MEDS ORDERED: Vancomycin Random Level* NOTE FOLLOW UP ONE (06:00)
[2019-09-08] MEDS: LORazepam TAB(*) 0.5 MG PO SCH ×2 (07:34→20:38)
[2019-09-08] MEDS: Morphine INJ* 2 MG/ML 1 ML SYRINGE (TWO MG - NEW SYRINGE VERSION) IV PRN ×3 (08:22→21:47)
[2019-09-08] MEDS ORDERED: Venlafaxine EXT RELEASE CAP* 75 MG PO SCH ×2 (09:00)
--- NOTE | 2019-09-08 10:03 | PN ---
Progress Note - Progress Note Date of Service: 09/08/19 Note: Central Line Procedure Note Indication: venous access Diagnosis: severe sepsis, soft tissue infection Performed by: Uli Grijalva MD Consent: Informed; placed in bedside chart Risks of procedure were explained if possible, all risks of pain/discomfort, bleeding, infection, PTX, Hemotx, need for chest tube, air/wire embolism, vessel injury, , and failed procedure disclosed and understanding verbalized [place] Protocol: Time-out was performed and the correct patient and site were verified - Prior labs/history was reviewed prior to procedure - Full sterile precautions with chlorhexidine/full drapes/gowns/gloves utilized - Left Internal Jugular Vein visualized with ultrasound - Vessel accessed under ultrasound guidance with return of nonpulsatile blood. A guidewire was passed into vessel and confirmed in vessel with ultrasound. 1 attempt was made to access vessel. Vessel was dilated and cathetor was passed over wire into vessel. All ports demonstrated good blood return and flushed. Catheter was sutured to site and dressing applied. Adequate hemostasis was achieved EBL <5 cc No immediate complications noted, patient tolerated procedure well. Post Procedure CXR: Pending Uli Grijalva MD Maintenance And Engineering Manager (Electronically Signed)
[2019-09-08 10:27] LABS: Hematocrit 34 % (35-47); Hemoglobin 10.8 g/dL (12.0-16.0); Mean Corpuscular HGB Conc 32 g/dL (31-36); Mean Corpuscular Hemoglobin 26 pg (27-31); Mean Corpuscular Volume 80 fL (80-97); Red Blood Count 4.22 10^6 /uL (3.70-4.87); Red Cell Distribution Width 16 % (10-15); White Blood Count 17.3 10^3/uL (3.5-10.8)
[2019-09-08 10:41] LABS: Albumin 2.7 g/dL (3.2-5.2); Albumin/Globulin Ratio 0.9 (1-3); BUN/Creatinine Ratio 34.7 (8-20); C Reactive Protein 275.66 mg/L (<8.01); Calcium 8.2 mg/dL (8.6-10.3); EGFR Non-African American 20.6 (>60); Phosphorus 3.7 mg/dL (2.5-5.0); Potassium 4.2 mmol/L (3.5-5.0); Total Bilirubin 1.2 mg/dL (0.2-1.0); Total Protein 5.7 g/dL (6.4-8.9)
[2019-09-08 10:44] LABS: Vancomycin Random 10.1 mcg/mL
[2019-09-08 10:57] LABS: ABS Basophils 0.1 10^3/ul (0-0.2); ABS Eosinophils 0.3 10^3/ul (0-0.6); ABS Monocytes 1.1 10^3/ul (0-0.8); ABS Neutrophils 14.9 10^3/ul (1.5-7.7); Eosinophil % 1.6 %; Lymphocyte % 5.6 %
[2019-09-08 11:03] LABS: Mean Platelet Volume 12.1 fL (7.4-10.4); Platelet Count 40 10^3/uL (150-450)
[2019-09-08] MEDS: NS 0.9% 1000 ML** 1,000 ML IV SCH ×2 (11:56→21:54)
--- NOTE | 2019-09-08 12:21 | PN ---
Progress Note - Progress Note Date of Service: 09/08/19 Note: Progress Note -- Critical Care 24 hour events -tmax 99.7, BP and HR stable, mild tachycardia -awake, alert; had left hip pain+, given morphine IV -no pressors, making urine -no distress, no cp/sob; but sometimes appears to be a little short of breath -CPAP at night -placed central line for access this morning Tele: sinus tachy Vitals: Vital Signs Temp 99.5 F 09/08/19 11:02 Pulse 104 09/08/19 11:02 Resp 21 09/08/19 11:02 BP 116/73 09/08/19 11:00 Pulse Ox 96 09/08/19 11:02 Intake & Output 09/07/19 09/08/19 09/08/19 18:59 06:59 18:59 Intake Total 815 2500 Output Total 390 1585 735 Balance 425 915 -735 Weight 209 kg 211.9 kg Intake: IV Fluids 255 1353 NS 255 1353 IVPB 500 187 ABX 187 NS 500 Oral 60 960 Output: Urine 300 Whyte 390 1285 735 O2/Vent: 2L NC Infusions: NS 100 Current Medications: Albuterol (Ventolin Hfa Inhaler*) 2 puff INH Q4H PRN PRN Reason: SOB/WHEEZING Dextrose (Dextrose 50% Vial 50 Ml*) 25 ml IV PUSH .FOR FS < 60 - SS PRN PRN Reason: FS < 60 Piperacillin Sod/Tazobactam (Sod 3.375 gm/ Sodium Chloride) 100 mls @ 25 mls/ hr IVPB Q8H REPLACED BY [facility] Last Admin: 09/08/19 11:56 Dose: 25 mls/hr Sodium Chloride (Ns 0.9% 1000 Ml) 1,000 mls @ 100 mls/hr IV PER RATE REPLACED BY [facility] Last Admin: 09/08/19 11:56 Dose: 100 mls/hr Insulin Glargine (Lantus(*)) 20 units SUBCUT Q24H REPLACED BY [facility] Last Admin: 09/07/19 16:28 Dose: 20 units Insulin Human Lispro (Humalog*) 0 units SUBCUT Q4HR REPLACED BY [facility]; Protocol Last Admin: 09/08/19 10:47 Dose: 6 units Lorazepam (Ativan Tab(*)) 1 mg PO BID REPLACED BY [facility] Last Admin: 09/08/19 07:34 Dose: 1 mg Mometasone Furoate (Asmanex 220 Mcg Mdi *) 2 puff INH QPM REPLACED BY [facility] Last Admin: 09/07/19 19:22 Dose: 2 puff Morphine Sulfate (Morphine Inj (Syringe))*) 1 mg IV Q1H PRN PRN Reason: SEVERE PAIN Last Admin: 09/08/19 08:22 Dose: 1 mg Nystatin (Nystatin Top Powder*) 1 applic TOPICAL Q8HR REPLACED BY [facility] Last Admin: 09/08/19 05:52 Dose: 1 applic Pharmacy Consult (Zosyn Per Pharmacy*) 1 note FOLLOW UP .ZOSYN PER PHARMACY REPLACED BY [facility] Venlafaxine HCl (Effexor Xr Cap*) 375 mg PO DAILY REPLACED BY [facility] Last Admin: 09/08/19 07:35 Dose: 375 mg Physical Exam: Constitutional: awake, alert, no distress, no diaphoresis, obese++ Head: normocephalic, atraumatic Eyes: no pallor, no icterus ENT: moist mucous membranes Neck: soft, supple, no jvd, no stridor CVS: normal rate, regular, no murmur Chest/Resp: bilateral air entry, no RRW, no acc muscle use Abdomen/GI: soft, tender lower quadrants+ nondistended, BS+ Ext/Msk: warm, pulses+, no edema; Left thigh tender+, no erythema/induration noted Skin: intact, warm Neuro: awake, alert, orientedx3, moving all extremities, no gross focal deficit Psych: normal affect Labs: Laboratory Results - last 24 hr 09/07/19 09/07/19 09/07/19 10:53 14:15 15:07 WBC RBC Hgb Hct MCV MCH MCHC RDW Plt Count MPV Neut % (Auto) Lymph % (Auto) [place] % (Auto) Eos % (Auto) Baso % (Auto) Absolute Neuts (auto) Absolute Lymphs (auto) Absolute Monos (auto) Absolute Eos (auto) Absolute Basos (auto) Absolute Nucleated RBC Immature Gran % Neutrophils % Band Neutrophils % Lymphocytes % Monocytes % Eosinophils % Metamyelocytes % Myelocytes % Promyelocytes % Nucleated RBC % Normal RBC Morphology Hem Pathologist Commnt Sodium Potassium Chloride Carbon Dioxide Anion Gap BUN Creatinine Est GFR ( Amer) Est GFR (Non-Af Amer) BUN/Creatinine Ratio Glucose POC Glucose (mg/dL) Lactic Acid 1.7 Calcium Phosphorus Magnesium Total Bilirubin AST ALT Alkaline Phosphatase C-Reactive Protein Total Protein Albumin Globulin Albumin/Globulin Ratio Urine Color Svetlana Urine Appearance Cloudy Urine pH 5.0 Ur Specific [place] 1.015 Urine Protein 2+(100 mg/dl) A Urine Ketones Negative Urine Blood 3+ A Urine Nitrate Negative Urine Bilirubin Negative Urine Urobilinogen Negative Ur Leukocyte Esterase 3+ A Urine WBC (Auto) 3+(>20/hpf) A Urine RBC (Auto) 3+(>10/hpf) A Ur Squamous Epith Cells Present A Urine Bacteria 1+ A Hyaline Casts Urine Glucose Negative Random Vancomycin 09/07/19 09/07/19 09/07/19 16:23 17:20 18:24 WBC RBC Hgb Hct MCV MCH MCHC RDW Plt Count MPV Neut % (Auto) Lymph % (Auto) [place] % (Auto) Eos % (Auto) Baso % (Auto) Absolute Neuts (auto) Absolute Lymphs (auto) Absolute Monos (auto) Absolute Eos (auto) Absolute Basos (auto) Absolute Nucleated RBC Immature Gran % Neutrophils % Band Neutrophils % Lymphocytes % Monocytes % Eosinophils % Metamyelocytes % Myelocytes % Promyelocytes % Nucleated RBC % Normal RBC Morphology Hem Pathologist Commnt Sodium Potassium Chloride Carbon Dioxide Anion Gap BUN Creatinine Est GFR ( Amer) Est GFR (Non-Af Amer) BUN/Creatinine Ratio Glucose POC Glucose (mg/dL) 332 H 305 H Lactic Acid Calcium Phosphorus Magnesium Total Bilirubin AST ALT Alkaline Phosphatase C-Reactive Protein Total Protein Albumin Globulin Albumin/Globulin Ratio Urine Color Svetlana Urine Appearance Cloudy Urine pH 5.0 Ur Specific [place] 1.015 Urine Protein 1+(30 mg/dl) A Urine Ketones Negative Urine Blood 3+ A Urine Nitrate Negative Urine Bilirubin Negative Urine Urobilinogen Negative Ur Leukocyte Esterase 3+ A Urine WBC (Auto) 3+(>20/hpf) A Urine RBC (Auto) 3+(>10/hpf) A Ur Squamous Epith Cells Present A Urine Bacteria 1+ A Hyaline Casts Present A Urine Glucose Negative Random Vancomycin 09/07/19 09/07/19 09/08/19 19:25 21:25 01:56 WBC RBC Hgb Hct MCV MCH MCHC RDW Plt Count MPV Neut % (Auto) Lymph % (Auto) [place] % (Auto) Eos % (Auto) Baso % (Auto) Absolute Neuts (auto) Absolute Lymphs (auto) Absolute Monos (auto) Absolute Eos (auto) Absolute Basos (auto) Absolute Nucleated RBC Immature Gran % Neutrophils % Band Neutrophils % Lymphocytes % Monocytes % Eosinophils % Metamyelocytes % Myelocytes % Promyelocytes % Nucleated RBC % Normal RBC Morphology Hem Pathologist Commnt Sodium Potassium Chloride Carbon Dioxide Anion Gap BUN Creatinine Est GFR ( Amer) Est GFR (Non-Af Amer) BUN/Creatinine Ratio Glucose POC Glucose (mg/dL) 283 H 278 H Lactic Acid 0.7 Calcium Phosphorus Magnesium Total Bilirubin AST ALT Alkaline Phosphatase C-Reactive Protein Total Protein Albumin Globulin Albumin/Globulin Ratio Urine Color Urine Appearance Urine pH Ur Specific [place] Urine Protein Urine Ketones Urine Blood Urine Nitrate Urine Bilirubin Urine Urobilinogen Ur Leukocyte Esterase Urine WBC (Auto) Urine RBC (Auto) Ur Squamous Epith Cells Urine Bacteria Hyaline Casts Urine Glucose Random Vancomycin 09/08/19 09/08/19 09/08/19 05:43 09:52 09:58 WBC 17.3 H RBC 4.22 Hgb 10.8 L Hct 34 L MCV 80 MCH 26 L MCHC 32 RDW 16 H Plt Count 40 L MPV 12.1 H Neut % (Auto) 86.2 Lymph % (Auto) 5.6 [place] % (Auto) 6.2 Eos % (Auto) 1.6 Baso % (Auto) 0.4 Absolute Neuts (auto) 14.9 H Absolute Lymphs (auto) 1.0 Absolute Monos (auto) 1.1 H Absolute Eos (auto) 0.3 Absolute Basos (auto) 0.1 Absolute Nucleated RBC 0.0 Immature Gran % 6.0 Neutrophils % 78.0 Band Neutrophils % 1.0 Lymphocytes % 6.0 Monocytes % 8.0 Eosinophils % 2.0 Metamyelocytes % 3.0 H Myelocytes % 1.0 Promyelocytes % 1.0 Nucleated RBC % 0.0 Normal RBC Morphology Normal Hem Pathologist Commnt Sodium 131 L Potassium 4.2 Chloride 99 L Carbon Dioxide 22 Anion Gap 10 BUN 85 H Creatinine 2.45 H Est GFR ( Amer) 25.0 Est GFR (Non-Af Amer) 20.6 BUN/Creatinine Ratio 34.7 H Glucose 201 H POC Glucose (mg/dL) 228 H Lactic Acid Calcium 8.2 L Phosphorus 3.7 Magnesium 2.0 Total Bilirubin 1.20 H AST 49 H ALT 53 H Alkaline Phosphatase 135 H C-Reactive Protein 275.66 H Total Protein 5.7 L Albumin 2.7 L Globulin 3.0 Albumin/Globulin Ratio 0.9 L Urine Color Urine Appearance Urine pH Ur Specific [place] Urine Protein Urine Ketones Urine Blood Urine Nitrate Urine Bilirubin Urine Urobilinogen Ur Leukocyte Esterase Urine WBC (Auto) Urine RBC (Auto) Ur Squamous Epith Cells Urine Bacteria Hyaline Casts Urine Glucose Random Vancomycin 10.1 09/08/19 10:18 WBC RBC Hgb Hct MCV MCH MCHC RDW Plt Count MPV Neut % (Auto) Lymph % (Auto) [place] % (Auto) Eos % (Auto) Baso % (Auto) Absolute Neuts (auto) Absolute Lymphs (auto) Absolute Monos (auto) Absolute Eos (auto) Absolute Basos (auto) Absolute Nucleated RBC Immature Gran % Neutrophils % Band Neutrophils % Lymphocytes % Monocytes % Eosinophils % Metamyelocytes % Myelocytes % Promyelocytes % Nucleated RBC % Normal RBC Morphology Hem Pathologist Commnt Sodium Potassium Chloride Carbon Dioxide Anion Gap BUN Creatinine Est GFR ( Amer) Est GFR (Non-Af Amer) BUN/Creatinine Ratio Glucose POC Glucose (mg/dL) 205 H Lactic Acid Calcium Phosphorus Magnesium Total Bilirubin AST ALT Alkaline Phosphatase C-Reactive Protein Total Protein Albumin Globulin Albumin/Globulin Ratio Urine Color Urine Appearance Urine pH Ur Specific [place] Urine Protein Urine Ketones Urine Blood Urine Nitrate Urine Bilirubin Urine Urobilinogen Ur Leukocyte Esterase Urine WBC (Auto) Urine RBC (Auto) Ur Squamous Epith Cells Urine Bacteria Hyaline Casts Urine Glucose Random Vancomycin Imaging: CT abd/pelvis 09/07 - inflammatory change left pelvic sidewall from thigh to psoas muscle with gas density; mild left hydronephrosis, left adrenal adenoma Assessment: 54y F w/pmhx of morbid obesity, DM, HLD, Depression/anxiety, asthma , sleep apnea; comes to ER for difficulty walking x2 days. She states Friday (4 days back) she had left hip pain, progressed to difficulty walking on Friday. Today unable to stand due to left hip pain. No back pain. Fevers+. No cough. SOB +. No sputum. No nausea/vom. Dec po intake+. Decreased urination, dark+.Was started on macrobid last for possible urine infection. In ER she was tachycardic, BP 130s, afebrile, RR 24, on RA. Started on sepsis protocol with 2L IVF bolus, IV abx zosyn. CT abd/pelvis demonstrated inflammatory change from left thigh to pelvis to left psoas muscle with gaseous formation, and noted to have left mild hydronephrosis. Surgery consulted and advised no acute surgical intervention at this time. Urology consulted and concerned about cysto given low plt count. -Severe Sepsis -Left thigh and psoas soft tissue infection -r/o nec fasc -E.coli Bacteremia -Thrombocytopenia -ESTHER -Hyponatremia -Elevated LFTs -Mild Left hydronephrosis Obesity DM Sleep apnea Plan: Neuro- -alert -Delirium prec; avoid BDZ CVS- -BP stable, LA neg; has not req pressors -cont NS 100cc/hr -Empiric IV abx for deep soft tissue infection and gram neg bacteremia -Maintain MAP>65 Resp- -mild tachypnea, no acc muscle use; on 2L NC -CXr 09/08 with no sig congestion -nocturnal cpap for sleep apnea ordered -Wean Fio2 to keep sat>92% -Bronchodilators PRN, asp prec ID- afebrile, tmax 99.6. wbc 14-17. LA neg -CT abd/pelvis 09/07 with left thigh/pelvic ascending soft tissue infection; myositis? nec fasc? -E.coli+ on blood cx 09/07 -Urine cx pending -d/c vancomycin; cont zosyn (day#2) GI- -diabetic diet -noted elevated LFTs 40-50s; may be some septic/ischemic injury; will trend -GI prophylaxis Renal- -ESTHER; multifactorial from sepsis, hypovolemia and left hydro/obstruction -Cr has started to decreased, BUN down; still making urine -pendign urine culture -not on pressors -cont NS 100cc/hr -Left hydro, may be associated with infection around psoas; urology followup today; but given low plt unliekly for an intervention at this time -noted low plt, will transfuse if cysto or perc neph needed -strict I/O, replete to keep K>4, Mg>2 -whyte + Heme- -hg slight drop, after hydration, hg 10-11 -thrombocytopenia 40s now; no bleeding noted; suspect 2/2 to sepsis -hold off chemical dvt proph Endo- Maintain BG<200, insulin protocol as needed. Musculsk- pressure ulcer prophylaxis. Bedrest. -noted left thigh infection deep tissue with ascension to pelvis; d/w surgey and urology; has not worsened yet, has remained hemodyn stable. -cont IV abx; unclear where this soft tissue infection has come from... renal source? noted preivous e.coli from urine also 07/2019, perforation/leak? Wounds- none Nutrition- diabetic diet DVT prophylaxis: SCD; no chemical due to thrombocytopenia GI prophylaxis: none indicated Central Line: Left IJ 09/08 Arterial Line: - Whyte Cathetor: yes Disposition: discussed with surgeyr and urology; given body habitus,possible risk of prgression and may need repeated surgeries and limited [place] [facility] [place]. [facility], no beds available or services limited. [facility] would accept under surgical service to SICU but pending beds, on wait-list. Pending transfer if bed becomes available. I discussed this with the patient who agrees. Patient Clinical Status: guarded Code Status: full code Total Critical Care time is 45 minutes, excluding procedures/teaching Uli Grijalva MD Community Education Coordinator (Electronically Signed)
[2019-09-08 13:15] LABS: INR 1.09 (0.82-1.09)
[2019-09-08] MEDS: Insulin GLARGINE(*) 1 UNITS UNIT SUBCUT SCH (14:48)
[2019-09-08 15:21] LABS: TSH (Thyroid Stimulating Horm) 0.98 mcIU/mL (0.34-5.60)
[2019-09-08] MEDS ORDERED: Norepinephrine 16MCG/ML IVPRE* 4,000 MCG/250 ML BAG IV SCH (19:00)
[2019-09-08] MEDS: Mometasone 220 MCG MDI INH SCH (19:17)
--- NOTE | 2019-09-08 19:37 | DS ---
Discharge Summary Patient Name: Marleni Serrano Date of Admission: 09/07/2019 Date of Discharge: 09/08/2019 Attending: Dr Uli Grijalva (distributed energy systems consultant) Consultants: Dr You (General surgery), Dr Wheeler (Urology) Admitting Diagnoses: 1- Severe Sepsis 2- Left thigh and psoas soft tissue infection 3- suspected urinary track infection 4- Thrombocytopenia 5- Acute Kidney Injury 6- Elevated Liver Function tests 7- Left Hydronephrosis Discharge Diagnoses: 1- Severe Sepsis 2- Left thigh and psoas soft tissue infection 3- E.coli urinary track infection 4- Thrombocytopenia 5- Acute Kidney Injury 6- Elevated Liver Function tests 7- Left Hydronephrosis 8- E.coli Bacteremia HPI/Hospital Course: 54y F w/pmhx of morbid obesity, DM, HLD, Depression/anxiety, asthma, sleep apnea ; comes to ER for difficulty walking x2 days. She states Friday (4 days back) she had left hip pain, progressed to difficulty walking on Friday. Today unable to stand due to left hip pain. No back pain. Fevers+. No cough. SOB+. No sputum. No nausea/vom. Dec po intake+. Decreased urination, dark+.Was started on macrobid last for possible urine infection. In ER she was tachycardic, BP 130s, afebrile, RR 24, on RA. Started on sepsis protocol with 2L IVF bolus, IV abx zosyn. CT abd/pelvis demonstrated inflammatory change from left thigh to pelvis to left psoas muscle with gaseous formation, and noted to have left mild hydronephrosis. Surgery consulted and advised no acute surgical intervention at this time. Urology consulted and concerned about cysto given low plt count. She remained hemodynamically stable without elevations in Lactic acid. Intravenous antibiotics were continued. I discussed with general surgery and their concern was for need for redo operative procedures given OR availability. Urology was concerned about need for possible cysto and ureteral stenting given the hydronephrosis on the left which may be a result of the psoas infection, but because of the thrombocytopenia would be a bleeding risk at this time. Interventional Radiology was contacted from the ER on 09/07 but the hydronephrosis was mild and not a good candidate for percutaneous drain placement at this time. They advised that her condition may be Fasciitis and that aggressive medical measures may not be enough and surgical intervention would definitively be required at a facility with more resources. On 09/08 she remained stable, temps of 99.6 tmax but rising WBC from 14 to 17 but no change in hemodynamics, but improvement in heart rate to normal 90s. She remained awake and alert. Blood cultures returned with E.coli in all sets as well as from Urine cultures. A plan for repeat abdominal/pelvic imaging was planned in the next 24 hours to assess status of soft tissue infection and hydronephrosis. A central line was placed on 09/08 morning for better venous access. Multiple centers were contacted on 09/07 but [facility] and [facility] were not able to provide beds. [facility] was contacted 09/07 and case discussed, placed on wait list. Patient was accepted today and a bed was available at [facility] in [place] in the SICU. She is aware and to be transferred later this evening on 09/08. Procedures/Imaging: Ct abd/pelvis 09/07 - see chart Laboratory/Data: see chart Discharge Medications: see chart - Metronidazole IV, NS 100cc/hr, Piperacillin IV q8h Diet: Diabetic diet Activity: Bedrest Condition upon discharge: Guarded, but stable Disposition: Discharge to [facility] to SICU Code Status: full code Total Discharge time 35 minutes Uli Grijalva MD Wet Process [place] (Electronically Signed)
[2019-09-08 22:10] VITALS: BP 123/57
== END 2019-09-08 21:50 | disposition short-term general hospital (02) | DRG 872 ==
LOC: ED 10:38 → ICU 14:30
PROVIDERS: ADMIT Internal Medicine; ATTEND Internal Medicine Critical Care Medicine
PROC: 5A09357 Assistance with Respiratory Ventilation, Less than 24 Consecutive Hours, Continuous Positive Airway Pressure (ICD-10-PCS; principal; 2019-09-07)
PROC: 02HV33Z Insertion of Infusion Device into Superior Vena Cava, Percutaneous Approach (ICD-10-PCS; 2019-09-08)
DX: A41.51 Sepsis due to Escherichia coli [E. coli] (principal); N13.6 Pyonephrosis; Z68.45 Body mass index [BMI] 70 or greater, adult; E87.1 Hypo-osmolality and hyponatremia; M60.052 Infective myositis, left thigh; N17.9 Acute kidney failure, unspecified; R65.20 Severe sepsis without septic shock; E66.01 Morbid (severe) obesity due to excess calories; E11.9 Type 2 diabetes mellitus without complications; E78.00 Pure hypercholesterolemia, unspecified; I10 Essential (primary) hypertension; J45.909 Unspecified asthma, uncomplicated; M19.042 Primary osteoarthritis, left hand; M19.041 Primary osteoarthritis, right hand; M17.12 Unilateral primary osteoarthritis, left knee; M16.12 Unilateral primary osteoarthritis, left hip; F41.9 Anxiety disorder, unspecified; F32.9 Major depressive disorder, single episode, unspecified; G47.33 Obstructive sleep apnea (adult) (pediatric); E78.5 Hyperlipidemia, unspecified; D69.6 Thrombocytopenia, unspecified; D35.02 Benign neoplasm of left adrenal gland; K76.0 Fatty (change of) liver, not elsewhere classified; Z56.0 Unemployment, unspecified; Z72.89 Other problems related to lifestyle
CPT/HCPCS: 36415; 71045; 74176; 80053; 80202; 81003; 81015; 83036; 83605; 83735; 84100; 84443; 85025; 85060; 85610; 86140; 87040; 87077; 87086; 87186; 87205; 87641; 94640; 94660; 96365; 96367; 99285; A9270-GY; J2270; J2543; J3370

== ENCOUNTER 2019-09-16 16:40 | Inpatient (IN) | payer MEDICARE, MEDICAID ==
[2019-09-17] MEDS ORDERED: Docusate CAP* 100 MG PO PRN (12:38)
[2019-09-17] MEDS ORDERED: Dextrose 50% VIAL 50 ml IV PUSH PRN (12:42)
[2019-09-17] MEDS ORDERED: Enoxaparin(*) 40 MG/0.4 ML SYR SUBCUT SCH (13:00)
[2019-09-17] MEDS ORDERED: CEFAZOLIN IVPB SCH ×3 (13:00→14:00)
[2019-09-17] MEDS ORDERED: NS 0.9% IVPB SCH ×3 (13:00→14:00)
[2019-09-17] MEDS ORDERED: ADVAN IVPB SCH ×3 (13:00→14:00)
[2019-09-17] MEDS: Insulin LISPRO* 1 UNITS UNIT SUBCUT SCH ×3 (14:17→20:29)
[2019-09-17] MEDS: ceFAZolin* 2 GM* Q8H (Duplex) IVPB SCH ×2 (14:32→20:08)
[2019-09-17 15:05] LABS: Hematocrit 27 % (35-47); Hemoglobin 8.4 g/dL (12.0-16.0); Mean Corpuscular HGB Conc 31 g/dL (31-36); Mean Corpuscular Hemoglobin 25 pg (27-31); Mean Corpuscular Volume 81 fL (80-97); Mean Platelet Volume 9.6 fL (7.4-10.4); Platelet Count 387 10^3/uL (150-450); Red Blood Count 3.32 10^6 /uL (3.70-4.87); Red Cell Distribution Width 16 % (10-15); White Blood Count 15.6 10^3/uL (3.5-10.8)
[2019-09-17 15:16] LABS: Albumin 2.6 g/dL (3.2-5.2); Albumin/Globulin Ratio 0.6 (1-3); BUN/Creatinine Ratio 23.3 (8-20); C Reactive Protein 44.54 mg/L (<8.01); Calcium 8.8 mg/dL (8.6-10.3); EGFR African American 100.9 (>60); EGFR Non-African American 83.4 (>60); Globulin 4.1 g/dL (2-4); Total Bilirubin 0.3 mg/dL (0.2-1.0); Total Protein 6.7 g/dL (6.4-8.9)
[2019-09-17 16:10] LABS: ABS Basophils 0.1 10^3/ul (0-0.2); ABS Eosinophils 0.1 10^3/ul (0-0.6); ABS Monocytes 0.8 10^3/ul (0-0.8); ABS Neutrophils 13.7 10^3/ul (1.5-7.7); Eosinophil % 0.6 %; Lymphocyte % 6.2 %; Nucleated Red Blood Cells % 0.1
[2019-09-17] MEDS: Acetaminophen TAB* 325 MG PO PRN (18:16)
[2019-09-17] MEDS: oxyCODONE TAB* 5 MG TAB PO PRN (20:30)
[2019-09-17] MEDS: Nystatin TOP POWDER* 15 GM BTL TOPICAL SCH (20:30)
[2019-09-17] MEDS ORDERED: Insulin GLARGINE(*) 1 UNITS UNIT SUBCUT SCH (21:00)
--- NOTE | 2019-09-17 21:06 | HP ---
CC: Dr. Meredith; Dr. Rivas * HISTORY AND PHYSICAL: DATE OF ADMISSION: 09/17/19 TIME OF EVALUATION: 1 p.m. PRIMARY CARE PROVIDER: Dr. Meredith. CONSULTING INFECTIOUS DISEASE SPECIALIST: Dr. Rivas. CHIEF COMPLAINT: "I'm back." HISTORY OF PRESENT ILLNESS: Ms. Serrano is a 54-year-old female with a past medical history of super morbid obesity with a BMI of 92, type 2 diabetes, hypertension, hyperlipidemia, depression, obstructive sleep apnea, who is transferred from [facility] back to [facility] to continue the treatment of her E. coli septicemia and psoas muscle necrotizing infection. The patient initially presented to her PCP on 09/02/19 with complaints of hematuria. She was diagnosed with a probable urinary tract infection and later on she also developed malaise, body aches, left hip pain, dysuria, and urinary frequency. At that point, she contacted her PCP's office again and was told that she did have a urinary infection, was prescribed Macrobid that she started taking the same day. She states that her symptoms persisted, she felt worse, so she presented to our emergency room on 09/07/19 for further evaluation. At that time, the impression was the patient had severe sepsis with psoas muscle myositis and she was admitted to the intensive care unit for further management. CT done at that time showed inflammatory change centered within the left pelvic sidewall tracking from the thigh into the psoas muscle with gas density noted tracking along the musculature. From our ICU, the patient was transferred to [facility] for further evaluation as it was felt she will need possible surgical procedures that we would not be able to perform in our facility. [place] [facility] the patient's blood cultures grew pansensitive E. coli. At [facility], the patient was continued on vancomycin and Zosyn. As per their discharge summary, Surgery discussed the case with IR, who stated that there was no fluid collection to be drained. The patient remained febrile with elevated leukocytosis. Orthopedic Surgery was consulted for possible sacroiliac joint involvement and they recommended first control of the psoas abscess before considering any drainage of the SI joint. On 09/13/19, the patient was taken to the OR for attempted operative drainage of the iliopsoas abscess. Orthopedics assisted during the case and performed dissection down to the femoral bone and no areas of necrosis or pus were found and initially a drain was left in place in the subcutaneous tissues. Cultures were obtained during the procedure and they are also growing E. coli. The patient was intubated for the procedure and she was transferred to the surgical ICU after the surgery as Anesthesia was unable to extubate her due to the large respiratory support she required. The patient did well in the postop period. She was able to be extubated. The wound cultures sent from the OR "grew" the pansensitive E. coli and Infectious Disease recommended treatment with cefazolin 3 g IV q.8 hours for 2 weeks (day one 09/13/19). At that point, the patient was felt to be improving to be medically stable and the hospitalist service was consulted to accept the patient back in transfer, as at this point it was felt that the patient will need prolonged antibiotic therapy and also PT and OT, as she is severely deconditioned at this time. The patient states that she is feeling much better at this time. Her pain is uncontrolled and her energy level is increasing. Her major complaint at this time is hunger. PAST MEDICAL HISTORY: 1. Super-morbid obesity with a BMI of 92. 2. Type 2 diabetes. 3. Hypertension. 4. Hyperlipidemia. 5. Depression. 6. Obstructive sleep apnea, on BiPAP. PAST SURGICAL HISTORY: 1. Status post appendectomy during childhood. 2. Status post exploration of psoas muscle and thigh on 09/13/19 as described above. MEDICATION LIST: 1. Amlodipine 10 mg p.o. daily. 2. Cefazolin 3 g IV q.8 hours. 3. Colace 100 mg p.o. b.i.d. p.r.n. constipation. 4. Lovenox 30 mg subcutaneously q.12. 5. Heparin flush. 6. Lantus 15 units subcutaneously at bedtime. 7. Lispro sliding scale. 8. Losartan 100 mg p.o. daily. 9. Nystatin topical b.i.d. 10. Oxycodone 5 mg p.o. q.4 hours p.r.n. pain. 11. Venlafaxine 375 mg p.o. daily. ALLERGIES: No known drug allergies. FAMILY HISTORY: The patient's father passed from prostate cancer. SOCIAL HISTORY: The patient denies tobacco, alcohol, or drug use. Surrogate decision maker is her mother, Ara Serrano, phone number is [phone]. REVIEW OF SYSTEMS: A 14-point review of systems was performed and all the pertinent negatives and positive findings are in the HPI. PHYSICAL EXAMINATION GENERAL: The patient is a super-morbid obese, middle-aged lady, lying in "big boy bed," in no acute distress. VITAL SIGNS: Temperature 97.2, heart rate is 70, respiratory rate is 18, oxygen saturation 96% on 2 L nasal cannula, blood pressure is 148/67. HEENT: Pupils are equal. Moist mucous membranes. CHEST: Breath sounds present bilaterally with no added sounds, also distant. CVS: Normal S1, S2. Regular rate and rhythm with distant sounds. ABDOMEN: Morbidly obese, nontender, nondistended. Bowel sounds are present. EXTREMITIES: The patient has left hip area clean dressing intact. There is mild bilateral lower extremity edema. NEUROLOGIC: She is alert and oriented x3. Face is symmetric. Speech is clear. She is able to move all 4 extremities. Power is 4/5 on all 4, symmetric but she is deconditioned. SKIN: The patient has significant pannus with area of yeast infection in the pannus and vulvar area. LABORATORY AND IMAGING DATA: Her last CBC at [facility] showed a white cell count of 21.4, hemoglobin of 8, hematocrit of 25 with 86% neutrophils. Chemistry showed a sodium of 137, potassium of 4.4, chloride of 103, bicarb of 25, glucose of 174, BUN of 19, creatinine of 1.1. CT pelvis with contrast done on 09/12/19 showed complex collection of fluid, soft tissue density and air in the left iliopsoas muscle measuring up to 8.2 cm in mediolateral x 6 cm anteroposterior and extending for at least 25 cm craniocaudal. This is overall likely increased in size and extent compared to a prior CT from 09/09/19. This again appears to be primarily a phlegmon and may not be easily drainable. This extends into the deep aspect of the left anterior thigh, anterior to the proximal femur. There is enlargement of the left psoas muscle proximal to this as before. Increased fat stranding in the anterior abdominal wall bilaterally, which is presumably cellulitis with increased cellulitis in abdominal wall pannus, which is partially included. ASSESSMENT AND PLAN: Ms. Serrano is a 54-year-old female with a past medical history of super-morbid obesity with a body mass index of 92, type 2 diabetes, hypertension, hyperlipidemia, depression, obstructive sleep apnea on BiPAP, who initially was admitted to our facility with severe sepsis secondary to Escherichia coli septicemia and iliopsoas necrotizing infection, transferred to [facility] for further surgical management and now returned to our facility to continue antibiotic treatment and physical and occupational therapies. 1. Escherichia coli septicemia. This appears to be resolved at this time. For now, the patient will be continued on cefazolin, but we will request Infectious Disease consult in our facility to guide treatment further. 2. Iliopsoas muscle necrotizing infection. As per CT description, the patient never had a discrete abscess, but inflammatory changes suggestive of extensive phlegmon. In any case, culture sent from the surgical site grew Escherichia coli. She will be continued on cefazolin and Infectious Disease consult was requested as described above. 2. Type 2 diabetes, chronically uncontrolled with hemoglobin A1c greater than 8. She will be continued on Lantus and lispro sliding scale with a goal of glucose less than 180. 3. Physical deconditioning. The patient will be seen in consultation by physical therapy and occupational therapy and she will likely require placement at subacute rehab. At this time, the patient requires Amol lift. 4. Super-morbid obesity. The patient will benefit from dietary evaluation and a referral to [facility] on discharge. 5. DVT prophylaxis. The patient has a score of 2 on a DVT Prophylaxis Risk Assessment Guide and she will be continued on Lovenox. 6. Code status is full. TIME SPENT: Approximately 70 minutes was spent with patient interview, medical records review, physical examination to complete this complex admission; more than half of this time was spent [id number] with the patient and coordination of care. [id number]/[facility] #: [id number] [facility] CENTERToan
[2019-09-17] MEDS ORDERED: Albuterol HFA INHALER* 8 gm MDI INH PRN (21:30)
[2019-09-18] MEDS: Acetaminophen TAB* 325 MG PO PRN ×2 (01:26→18:30)
[2019-09-18] MEDS: ceFAZolin* 2 GM* Q8H (Duplex) IVPB SCH ×5 (01:26→20:55)
[2019-09-18] MEDS: oxyCODONE TAB* 5 MG TAB PO PRN ×2 (06:02→10:58)
[2019-09-18] MEDS ORDERED: Dextrose 50% VIAL 50 ml IV PUSH PRN (07:02)
[2019-09-18] MEDS: amLODIPine TAB* 5 MG PO SCH (07:54)
[2019-09-18] MEDS: Losartan TAB* 25 MG PO SCH (07:54)
[2019-09-18] MEDS: Venlafaxine EXT RELEASE CAP* 75 MG PO SCH ×2 (07:54)
[2019-09-18] MEDS: Insulin LISPRO* 1 UNITS UNIT SUBCUT SCH ×7 (07:55→20:56)
[2019-09-18] MEDS: Nystatin TOP POWDER* 15 GM BTL TOPICAL SCH ×2 (08:03→20:58)
[2019-09-18] MEDS ORDERED: Enoxaparin(*) 40 MG/0.4 ML SYR SUBCUT SCH (15:00)
--- NOTE | 2019-09-18 17:53 | PN ---
Subjective Date of Service: 09/18/19 Interval History: HOSPITALIST PROGRESS NOTE Patient seen and examined at bedside. Care reviewed and d/w Amadeo Almazan RN. She feels well today, offers no complaints. Family History: Unchanged from Admission Social History: Unchanged from Admission Past Medical History: Unchanged from Admission Objective Active Medications: Acetaminophen (Tylenol Tab*) 650 mg PO Q6H PRN PRN Reason: MILD PAIN or TEMP > 100.4 Last Admin: 09/18/19 01:26 Dose: 650 mg Albuterol (Ventolin Hfa Inhaler*) 2 puff INH Q4H PRN PRN Reason: SOB/WHEEZING Amlodipine Besylate (Norvasc Tab*) 10 mg PO DAILY [facility] Last Admin: 09/18/19 07:54 Dose: 10 mg Dextrose (Dextrose 50% Vial 50 Ml*) 25 ml IV PUSH .FOR FS < 60 - SS PRN PRN Reason: FS < 60 Docusate Sodium (Colace Cap*) 100 mg PO BID PRN PRN Reason: CONSTIPATION Enoxaparin Sodium (Lovenox(*)) 50 mg SUBCUT Q24H [facility] Heparin Sodium (Porcine) (Heparin Flush Picc/Ml/Cvc(*)) 1 ml FLUSH 0600,1800 [facility]; Protocol Last Admin: 09/18/19 17:09 Dose: 1 ml Hydralazine HCl (Apresoline Iv*) 5 mg IV SLOW PU Q6H PRN PRN Reason: SBP>180 Cefazolin Sodium/Dextrose (Kefzol 2 Gm Premix In Ors(*)) 2 gm in 50 mls @ 100 mls/hr IVPB Q6H [facility] Last Admin: 09/18/19 14:06 Dose: 100 mls/hr Insulin Glargine (Lantus(*)) 20 units SUBCUT BEDTIME [facility] Insulin Human Lispro (Humalog*) 0 units SUBCUT ACHS [facility]; Protocol Last Admin: 09/18/19 16:30 Dose: Not Given Insulin Human Lispro (Humalog*) 0 units SUBCUT AC [facility]; Protocol Last Admin: 09/18/19 14:01 Dose: 3 units Losartan Potassium (Cozaar Tab*) 100 mg PO DAILY [facility] Last Admin: 09/18/19 07:54 Dose: 100 mg Metoprolol Tartrate (Lopressor Tab*) 25 mg PO BID [facility] Nystatin (Nystatin Top Powder*) 1 applic TOPICAL BID [facility] Last Admin: 09/18/19 08:03 Dose: 1 applic Oxycodone HCl (Roxycodone Tab*) 5 mg PO Q4H PRN PRN Reason: PAIN - MODERATE Last Admin: 09/18/19 06:02 Dose: 5 mg Oxycodone HCl (Roxycodone Tab*) 10 mg PO Q4H PRN PRN Reason: PAIN - SEVERE Last Admin: 09/18/19 10:58 Dose: 10 mg Venlafaxine HCl (Effexor Xr Cap*) 300 mg PO DAILY [facility] Last Admin: 09/18/19 07:54 Dose: 300 mg Venlafaxine HCl (Effexor Xr Cap*) 75 mg PO DAILY [facility] Last Admin: 09/18/19 07:54 Dose: 75 mg Vital Signs - 8 hr 09/18/19 09/18/19 09/18/19 10:58 11:46 14:02 Temperature 97.5 F Pulse Rate 89 Respiratory 18 22 18 Rate Blood Pressure 185/77 (mmHg) O2 Sat by Pulse 92 Oximetry 09/18/19 16:00 Temperature 99 F Pulse Rate 81 Respiratory 18 Rate Blood Pressure 178/82 (mmHg) O2 Sat by Pulse 95 Oximetry Oxygen Devices in Use Now: BiPAP Appearance: Super morbid obese lady lying in bed in [facility] with BiPAP in place Eyes: No Scleral Icterus Ears/Nose/Mouth/Throat: Mucous Membranes Moist Neck: Trachea Midline Respiratory: Symmetrical Chest Expansion and Respiratory Effort, Clear to Auscultation - diminished in bases Cardiovascular: RRR - Normal S1 and S2 Abdominal: NL Sounds; No Tenderness; No Distention - morbid obese Extremities: - - Left thigh incision is clean, well approximated, with douglas in place, no drainage or erythema Neurological: Alert and Oriented x 3, - - MARIE Result Diagrams: 09/17/19 14:40 09/17/19 14:40 Assess/Plan/Problems-Billing Assessment: Mrs Serrano 54yo F with PMH of super morbid obesity with a BMI 92, type 2 DM, HTN , HLD, depression, JUSTINE on BiPAP; [place] [facility] [place] from [facility] for E. coli septicemia secondary to left psoas necrotizing infection. - Patient Problems (1) E. coli septicemia Comment: - ID consult requested. - Continue Cefazolin. (2) Iliopsoas abscess on left Comment: - S/p surgical exploration by General Surgery and Ortho at [facility]. - Continue Cefazolin - tentative plan for 2 more weeks of treatment. (3) Type 2 diabetes mellitus Comment: - A1c 8.8. - Continue Lantus and Lispro SS. (4) Physical deconditioning Comment: - Continue PT/OT. - Plan for TRAY. (5) Morbid obesity with BMI of 70 and over, adult Comment: - Refer to [facility] on discharge. (6) DVT prophylaxis Comment: - Lovenox. (7) Full code status
[2019-09-18] MEDS: Metoprolol Tartrate TAB* 25 MG PO SCH (20:56)
[2019-09-18] MEDS: Insulin GLARGINE(*) 1 UNITS UNIT SUBCUT SCH (20:57)
[2019-09-18] MEDS: hydrALAZINE IV* 20 MG/ML VIAL IV SLOW PU PRN (20:58)
[2019-09-19] MEDS: ceFAZolin* 2 GM* Q8H (Duplex) IVPB SCH ×4 (02:38→19:57)
[2019-09-19] MEDS: oxyCODONE TAB* 5 MG TAB PO PRN ×2 (03:17→09:27)
[2019-09-19] MEDS: Acetaminophen TAB* 325 MG PO PRN ×2 (05:54→17:53)
[2019-09-19] MEDS ORDERED: Furosemide IV* 10 MG/ML VIAL (40 MG) IV SLOW PU ONE (07:53)
[2019-09-19] MEDS: Nystatin TOP POWDER* 15 GM BTL TOPICAL SCH ×2 (09:26→20:04)
[2019-09-19] MEDS: Venlafaxine EXT RELEASE CAP* 75 MG PO SCH ×2 (09:27)
[2019-09-19] MEDS: amLODIPine TAB* 5 MG PO SCH (09:27)
[2019-09-19] MEDS: Metoprolol Tartrate TAB* 25 MG PO SCH ×2 (09:27→19:55)
[2019-09-19] MEDS: Losartan TAB* 25 MG PO SCH (09:27)
[2019-09-19] MEDS: Insulin LISPRO* 1 UNITS UNIT SUBCUT SCH ×7 (09:30→19:56)
--- NOTE | 2019-09-19 11:34 | PN ---
Subjective Date of Service: 09/19/19 Interval History: HOSPITALIST PROGRESS NOTE Patient seen and examined at bedside. Care reviewed and d/w Amadeo Almazan RN. She offers no new complaints today. Family History: Unchanged from Admission Social History: Unchanged from Admission Past Medical History: Unchanged from Admission Objective Active Medications: Acetaminophen (Tylenol Tab*) 650 mg PO Q6H PRN PRN Reason: MILD PAIN or TEMP > 100.4 Last Admin: 09/19/19 05:54 Dose: 650 mg Albuterol (Ventolin Hfa Inhaler*) 2 puff INH Q4H PRN PRN Reason: SOB/WHEEZING Amlodipine Besylate (Norvasc Tab*) 10 mg PO DAILY [facility] Last Admin: 09/19/19 09:27 Dose: 10 mg Dextrose (Dextrose 50% Vial 50 Ml*) 25 ml IV PUSH .FOR FS < 60 - SS PRN PRN Reason: FS < 60 Docusate Sodium (Colace Cap*) 100 mg PO BID PRN PRN Reason: CONSTIPATION Enoxaparin Sodium (Lovenox(*)) 50 mg SUBCUT Q24H [facility] Heparin Sodium (Porcine) (Heparin Flush Picc/Ml/Cvc(*)) 1 ml FLUSH 0600,1800 [facility]; Protocol Last Admin: 09/19/19 05:51 Dose: 1 ml Hydralazine HCl (Apresoline Iv*) 5 mg IV SLOW PU Q6H PRN PRN Reason: SBP>180 Last Admin: 09/18/19 20:58 Dose: 5 mg Cefazolin Sodium/Dextrose (Kefzol 2 Gm Premix In Ors(*)) 2 gm in 50 mls @ 100 mls/hr IVPB Q6H [facility] Last Admin: 09/19/19 09:32 Dose: 100 mls/hr Insulin Glargine (Lantus(*)) 20 units SUBCUT BEDTIME [facility] Last Admin: 09/18/19 20:57 Dose: 20 unit Insulin Human Lispro (Humalog*) 0 units SUBCUT ACHS [facility]; Protocol Last Admin: 09/19/19 09:30 Dose: 2 units Insulin Human Lispro (Humalog*) 0 units SUBCUT AC [facility]; Protocol Last Admin: 09/19/19 09:31 Dose: 5 units Losartan Potassium (Cozaar Tab*) 100 mg PO DAILY [facility] Last Admin: 09/19/19 09:27 Dose: 100 mg Metoprolol Tartrate (Lopressor Tab*) 25 mg PO BID [facility] Last Admin: 09/19/19 09:27 Dose: 25 mg Nystatin (Nystatin Top Powder*) 1 applic TOPICAL BID [facility] Last Admin: 09/19/19 09:26 Dose: 1 applic Oxycodone HCl (Roxycodone Tab*) 5 mg PO Q4H PRN PRN Reason: PAIN - MODERATE Last Admin: 09/19/19 03:17 Dose: 5 mg Oxycodone HCl (Roxycodone Tab*) 10 mg PO Q4H PRN PRN Reason: PAIN - SEVERE Last Admin: 09/19/19 09:27 Dose: 10 mg Venlafaxine HCl (Effexor Xr Cap*) 300 mg PO DAILY [facility] Last Admin: 09/19/19 09:27 Dose: 300 mg Venlafaxine HCl (Effexor Xr Cap*) 75 mg PO DAILY [facility] Last Admin: 09/19/19 09:27 Dose: 75 mg Vital Signs - 8 hr 09/19/19 09/19/19 09/19/19 07:00 08:00 09:27 Temperature 97.9 F Pulse Rate 77 Respiratory 20 20 18 Rate Blood Pressure 175/69 (mmHg) O2 Sat by Pulse 91 Oximetry Oxygen Devices in Use Now: BiPAP Appearance: Supermorbid obese lady lying in bed in [facility], BiPAP in place Eyes: No Scleral Icterus Ears/Nose/Mouth/Throat: Mucous Membranes Moist Neck: Trachea Midline Respiratory: Symmetrical Chest Expansion and Respiratory Effort, Clear to Auscultation - diminished in bases Cardiovascular: RRR - Normal S1 and S2, distant sounds Abdominal: NL Sounds; No Tenderness; No Distention - supermorbid obese Extremities: - - Left thigh incision is clean and dry, no erythema, douglas in place Neurological: Alert and Oriented x 3, NL Muscle Strength and Tone Result Diagrams: 09/17/19 14:40 09/17/19 14:40 Assess/Plan/Problems-Billing Assessment: Mrs Serrano 54yo F with PMH of super morbid obesity with a BMI 92, type 2 DM, HTN , HLD, depression, JUSTINE on BiPAP; transferred back [place] [facility] [place]19 from [facility] for E. coli septicemia secondary to left psoas necrotizing infection. - Patient Problems (1) E. coli septicemia Comment: - ID consult requested. - Continue Cefazolin. (2) Iliopsoas abscess on left Comment: - S/p surgical exploration by General Surgery and Ortho at [facility]. - Continue Cefazolin - tentative plan for 2 more weeks of treatment. (3) Fluid overload Comment: - Fluid overloaded in the setting of aggressive fluid resuscitation. - Furosemide 40mg IV x 1 today and monitor response. (4) Type 2 diabetes mellitus Comment: - A1c 8.8. - Continue Lantus and Lispro SS. (5) Physical deconditioning Comment: - Continue PT/OT. - Plan for TRAY. (6) Morbid obesity with BMI of 70 and over, adult Comment: - Refer to [facility] on discharge. (7) DVT prophylaxis Comment: - Lovenox. (8) Full code status
[2019-09-19] MEDS: hydrALAZINE IV* 20 MG/ML VIAL IV SLOW PU PRN (11:58)
[2019-09-19] MEDS ORDERED: Enoxaparin(*) 60 MG/0.6 ML SYR SUBCUT SCH (15:00)
[2019-09-19] MEDS: Insulin GLARGINE(*) 1 UNITS UNIT SUBCUT SCH (19:56)
[2019-09-20] MEDS: ceFAZolin* 2 GM* Q8H (Duplex) IVPB SCH ×4 (01:44→20:37)
[2019-09-20 05:20] LABS: Hematocrit 28 % (35-47); Hemoglobin 8.9 g/dL (12.0-16.0); Mean Corpuscular HGB Conc 32 g/dL (31-36); Mean Corpuscular Hemoglobin 26 pg (27-31); Mean Corpuscular Volume 80 fL (80-97); Mean Platelet Volume 8.6 fL (7.4-10.4); Platelet Count 487 10^3/uL (150-450); Red Blood Count 3.42 10^6 /uL (3.70-4.87); Red Cell Distribution Width 16 % (10-15); White Blood Count 15.4 10^3/uL (3.5-10.8)
[2019-09-20 05:27] LABS: ABS Basophils 0.1 10^3/ul (0-0.2); ABS Eosinophils 0.1 10^3/ul (0-0.6); ABS Lymphocytes 1.3 10^3/ul (1.0-4.8); ABS Monocytes 1.1 10^3/ul (0-0.8); ABS Neutrophils 12.9 10^3/ul (1.5-7.7); Eosinophil % 0.8 %; Lymphocyte % 8.4 %
[2019-09-20 05:34] LABS: BUN/Creatinine Ratio 22.2 (8-20); C Reactive Protein 53.59 mg/L (<8.01); EGFR African American 102.5 (>60); EGFR Non-African American 84.7 (>60); Potassium 3.9 mmol/L (3.5-5.0)
[2019-09-20] MEDS: Acetaminophen TAB* 325 MG PO PRN ×3 (08:18→18:03)
[2019-09-20] MEDS: Venlafaxine EXT RELEASE CAP* 75 MG PO SCH ×2 (08:19→10:14)
[2019-09-20] MEDS: Metoprolol Tartrate TAB* 25 MG PO SCH ×2 (08:20→20:56)
[2019-09-20] MEDS: amLODIPine TAB* 5 MG PO SCH (08:20)
[2019-09-20] MEDS: Losartan TAB* 25 MG PO SCH (08:20)
[2019-09-20] MEDS: Insulin LISPRO* 1 UNITS UNIT SUBCUT SCH ×7 (08:23→20:57)
--- NOTE | 2019-09-20 08:43 | PN ---
Subjective Date of Service: 09/20/19 Interval History: Pain controlled with APAP. 2 loose stools per day, occ cramps. Good appetite. Using hospital BIPAP OK. Can't walk. Family History: Unchanged from Admission Social History: Unchanged from Admission Past Medical History: Unchanged from Admission Objective Active Medications: Acetaminophen (Tylenol Tab*) 650 mg PO Q6H PRN PRN Reason: MILD PAIN or TEMP > 100.4 Last Admin: 09/20/19 08:18 Dose: 650 mg Albuterol (Ventolin Hfa Inhaler*) 2 puff INH Q4H PRN PRN Reason: SOB/WHEEZING Amlodipine Besylate (Norvasc Tab*) 10 mg PO DAILY [facility] Last Admin: 09/20/19 08:20 Dose: 10 mg Dextrose (Dextrose 50% Vial 50 Ml*) 25 ml IV PUSH .FOR FS < 60 - SS PRN PRN Reason: FS < 60 Docusate Sodium (Colace Cap*) 100 mg PO BID PRN PRN Reason: CONSTIPATION Enoxaparin Sodium (Lovenox(*)) 50 mg SUBCUT Q24H [facility] Last Admin: 09/19/19 13:43 Dose: 50 mg Heparin Sodium (Porcine) (Heparin Flush Picc/Ml/Cvc(*)) 1 ml FLUSH 0600,1800 [facility]; Protocol Last Admin: 09/20/19 05:02 Dose: 1 ml Hydralazine HCl (Apresoline Iv*) 5 mg IV SLOW PU Q6H PRN PRN Reason: SBP>180 Last Admin: 09/19/19 11:58 Dose: 5 mg Cefazolin Sodium/Dextrose (Kefzol 2 Gm Premix In Ors(*)) 2 gm in 50 mls @ 100 mls/hr IVPB Q6H [facility] Last Admin: 09/20/19 08:26 Dose: 100 mls/hr Insulin Glargine (Lantus(*)) 20 units SUBCUT BEDTIME [facility] Last Admin: 09/19/19 19:56 Dose: 20 unit Insulin Human Lispro (Humalog*) 0 units SUBCUT ACHS [facility]; Protocol Last Admin: 09/20/19 08:23 Dose: 3 units Insulin Human Lispro (Humalog*) 0 units SUBCUT AC [facility]; Protocol Last Admin: 09/19/19 17:51 Dose: 4 units Losartan Potassium (Cozaar Tab*) 100 mg PO DAILY [facility] Last Admin: 09/20/19 08:20 Dose: 100 mg Metoprolol Tartrate (Lopressor Tab*) 25 mg PO BID [facility] Last Admin: 09/20/19 08:20 Dose: 25 mg Nystatin (Nystatin Top Powder*) 1 applic TOPICAL BID [facility] Last Admin: 09/19/19 20:04 Dose: 1 applic Oxycodone HCl (Roxycodone Tab*) 5 mg PO Q4H PRN PRN Reason: PAIN - MODERATE Last Admin: 09/19/19 03:17 Dose: 5 mg Oxycodone HCl (Roxycodone Tab*) 10 mg PO Q4H PRN PRN Reason: PAIN - SEVERE Last Admin: 09/19/19 09:27 Dose: 10 mg Venlafaxine HCl (Effexor Xr Cap*) 300 mg PO DAILY [facility] Last Admin: 09/20/19 08:19 Dose: 300 mg Venlafaxine HCl (Effexor Xr Cap*) 75 mg PO DAILY [facility] Last Admin: 09/19/19 09:27 Dose: 75 mg Vital Signs - 8 hr 09/20/19 09/20/19 03:23 07:58 Temperature 97.7 F 97.5 F Pulse Rate 77 74 Respiratory 20 18 Rate Blood Pressure 139/69 140/67 (mmHg) O2 Sat by Pulse 95 96 Oximetry Oxygen Devices in Use Now: BiPAP Appearance: Alert, partly up in bed. In good spirits. Looks comfortable. Eyes: No Scleral Icterus Respiratory: Symmetrical Chest Expansion and Respiratory Effort, Clear to Auscultation, Clear to Percussion, Clear to Palpation, - Cardiovascular: NL Sounds; No Murmurs; No JVD, RRR, No Edema, - Extremities: No Edema, No Clubbing, Cyanosis, - Skin: No Rash or Ulcers, No Nodules or Sclerosis, - Neurological: Alert and Oriented x 3, NL Sensation Result Diagrams: 09/20/19 05:00 09/20/19 05:00 Assess/Plan/Problems-Billing Assessment: Mrs Serrano 54yo F with PMH of super morbid obesity with a BMI 92, type 2 DM, HTN , HLD, depression, JUSTINE on BiPAP; [place] [facility] [place] from [facility] for E. coli septicemia secondary to left psoas necrotizing infection. - Patient Problems (1) Iliopsoas abscess on left Current Visit: Yes Status: Acute Code(s): K68.12 - PSOAS MUSCLE ABSCESS SNOMED Code(s): 880460667 Comment: - S/p surgical exploration by General Surgery and Ortho at [facility] 09/13. - Continue Cefazolin, E.coli is sens. - tentative plan for 2 more weeks of treatment, ending ? 10/04/19. (2) Morbid obesity with BMI of 70 and over, adult Current Visit: Yes Status: Acute Code(s): E66.01 - MORBID (SEVERE) OBESITY DUE TO EXCESS CALORIES; Z68.45 - BODY MASS INDEX (BMI) 70 OR GREATER, ADULT SNOMED Code(s): 391178792 Comment: - Refer to [facility] on discharge. BMI 91.7 on 09/20/19. (3) Type 2 diabetes mellitus Current Visit: Yes Status: Acute Comment: - A1c 8.8. - Continue Lantus and Lispro SS. (4) Physical deconditioning Current Visit: Yes Status: Acute Code(s): R53.81 - OTHER MALAISE SNOMED Code(s): 29981291856676 Comment: - Continue PT/OT. - Plan for TRAY. (5) DVT prophylaxis Current Visit: Yes Status: Acute Code(s): Z29.9 - ENCOUNTER FOR PROPHYLACTIC MEASURES, UNSPECIFIED SNOMED Code(s): 988195817 Comment: - Lovenox. Discussed with Rhea. No consensus for increased dose for DVT prophylaxis for obesity, labeling is for 40 mg, will change to 40 mg q 24 hr. (6) E. coli septicemia Current Visit: Yes Status: Acute Code(s): A41.51 - SEPSIS DUE TO ESCHERICHIA COLI [E. COLI] SNOMED Code(s): 393814762 Comment: - ID consult requested. - Continue Cefazolin. E.coli sens. Plan weekly labs including CRP.
[2019-09-20] MEDS: oxyCODONE TAB* 5 MG TAB PO PRN ×3 (10:13→20:56)
[2019-09-20] MEDS: Enoxaparin(*) 60 MG/0.6 ML SYR SUBCUT SCH (10:14)
[2019-09-20] MEDS: Nystatin TOP POWDER* 15 GM BTL TOPICAL SCH ×2 (10:16→20:57)
--- NOTE | 2019-09-20 19:12 | CONS ---
CONSULTATION REPORT: DATE OF CONSULT: 09/20/19 PRIMARY CARE PROVIDER: Dr. Barbra Meredith. PROVIDER REQUESTING CONSULTATION: Dr. Jazmine Kumari. CONSULTING SERVICE: Infectious Disease. PROVIDER: Latricia Parson NP ATTENDING PROVIDER: Dr. Torito Rivas * (dictated by Latricia Parson NP). REASON FOR CONSULT: E coli bacteremia and Psoas abscess. IMPRESSION: 1. Escherichia coli bacteremia with psoas muscle abscess. Initial urine culture from 09/07/19 with Escherichia coli. The patient is status post incision and drainage of the psoas, no abscess was found. There was what is described to be a phlegmon present. Blood cultures and area from the abscess with Escherichia coli. The patient was started on cefazolin 3 g IV every 8 hours at [facility] and transferred to [facility] to complete the course of antibiotics. 2. Super morbid obesity. BMI approximately 92. 3. Diabetes mellitus type 2. RECOMMENDATIONS/PLAN: Recommend continuing cefazolin 2 g IV every 6 hours. We will plan for a 3-week course of IV antibiotics and consider transitioning her to oral antibiotics to complete an extended course. We will continue to follow along. HISTORY OF PRESENT ILLNESS: Ms. Serrano is a 54-year-old female with past medical history significant for super morbid obesity with BMI of 92, diabetes mellitus type 2, hypertension, hyperlipidemia, depression, obstructive sleep apnea, who initially presented to her primary care provider on 09/02/19 with complaints of hematuria. She was diagnosed with a probable UTI and developed malaise, body aches, left hip pain, dysuria, and urinary frequency. She called her PCP again and was told that she had urinary tract infection and was started on Macrobid, which she started the same day. Her symptoms continued to persist. She presented to the emergency room on 09/07/19 for further evaluation. At that time, she was found to have severe sepsis with psoas muscle myositis and was admitted to the intensive care unit. She had a CT showing inflammatory change centered within the left pelvic sidewall tracking from the thigh into the psoas muscle with gas density noted tracking along the musculature. The patient was transferred from our ICU to [facility] for further evaluation as surgical procedures were not able to be performed on the patient at our facility. She had blood cultures drawn growing pansensitive E. coli and was transferred on vancomycin and Zosyn. The patient was seen in consultation by Orthopedic Surgery for possible sacroiliac joint involvement and recommended first controlling the psoas abscess before draining the SI joint. On 09/13/19, the patient was taken to the OR to attempt operative drainage of the iliopsoas abscess. Orthopedics assisted during the case and performed dissection down to the femoral bone with no area of necrosis or pus was found. Initially, a drain was left in place in the soft tissue, cultures obtained during the procedure growing E. coli. The patient was initially intubated and doing well and able to be extubated. Wound cultures from the OR with pansensitive E. coli. Infectious Disease saw the patient at [facility] and recommended 3 g of cefazolin IV every 8 hours. She was transferred back from [facility] to [facility] for continued treatment of her E. coli septicemia and psoas muscle infection. The patient states that she is having no fevers or chills. She continues to have left hip discomfort that is improving, worse with movement. Denies nausea, vomiting, diarrhea, abdominal pain. Denies rash. She has some mild back pain that is unchanged. She denies any urinary symptoms, but currently has a urinary catheter in place. PAST MEDICAL HISTORY: 1. Super morbid obesity with BMI of 92. 2. Diabetes mellitus type 2. 3. Hypertension. 4. Hyperlipidemia. 5. Depression. 6. Obstructive sleep apnea with BiPAP. PAST SURGICAL HISTORY: 1. Status post appendectomy. 2. Status post exploration of psoas muscle and thigh on 09/13/19. 3. Status post umbilical hernia repair with mesh. 4. Status post removal of a cyst on the left finger. MEDICATIONS: Home medications: 1. Ezetimibe 10 mg by mouth daily. 2. Albuterol HFA inhaler 2 puffs inhalation every 4 hours as needed for shortness of breath or wheeze. 3. Losartan 100 mg by mouth daily. 4. Loratadine 10 mg by mouth daily. 5. Lorazepam 1 mg by mouth twice daily. 6. Hemp oil 1 drop sublingual daily. 7. Flovent HFA inhaler 110 mcg 2 puffs inhalation twice daily. 8. Nitrofurantoin 100 mg by mouth twice daily. 9. Naproxen 375 mg by mouth daily. 10. Multivitamin 1 tablet by mouth daily. 11. Januvia 50 mg by mouth daily. 12. Simvastatin 80 mg by mouth daily. 13. Prandin 1 mg by mouth 3 times daily. 14. Metformin 1000 mg by mouth twice daily. 15. Celebrex 200 mg by mouth twice daily. 16. Effexor 37.5 mg by mouth daily. 17. Tramadol 50 mg by mouth every 6 hours as needed for pain. Hospital medications: 1. Acetaminophen 650 mg by mouth every 6 hours as needed for fever or pain. 2. Albuterol HFA inhaler 2 puffs inhalation every 4 hours as needed for shortness of breath or wheeze. 3. Amlodipine 10 mg by mouth daily. 4. Cefazolin 2 g IV every 6 hours. 5. Dextrose 25 mL IV push for glucose less than 60 as needed. 6. Colace 100 mg by mouth twice daily as needed for constipation. 7. Lovenox 40 mg subcutaneous daily. 8. Heparin sodium 1 mL flush twice daily to the PICC line. 9. Hydralazine 5 mg IV every 6 hours as needed for systolic blood pressure greater than 180. 10. Lantus insulin 20 units subcutaneous at bedtime. 11. Lispro insulin sliding scale with meals and at bedtime. 12. Lispro insulin carb counting with meals. 13. Losartan 100 mg by mouth daily. 14. Metoprolol tartrate 25 mg by mouth twice daily. 15. Nystatin powder apply topical twice daily. 16. Oxycodone 5 to 10 mg by mouth every 4 hours as needed for pain. 17. Effexor XR 37.5 mg by mouth daily. ALLERGIES: No known drug allergies. FAMILY HISTORY: Denies family history of recurrent or resistant infections, coronary artery disease or diabetes. Father with a history of pancreatic cancer. SOCIAL HISTORY: She occasionally drinks alcohol. Denies tobacco or recreational drug use. REVIEW OF SYSTEMS: I performed a 10-point review of systems. All the pertinent positives and negatives are mentioned in the history of present illness. The remaining review of systems are negative. PHYSICAL EXAM: Vital Signs: Temperature 97.5, heart rate 74, respiratory rate 18, O2 sat 96% on room air, blood pressure 140/67. General Appearance: Alert, appears to be in no acute distress. Head: Normocephalic, atraumatic. EENT: Extraocular movements are intact. No subconjunctival hemorrhage. Moist mucous membranes. Neck: Supple. Neurological: Alert and oriented. Cranial nerves II through XII are grossly intact. Cardiovascular: Regular rate and rhythm. Respiratory: No accessory muscle use. The lungs are clear to auscultation bilaterally, but diminished bilaterally. Abdomen: Morbidly obese, nontender, nondistended. Bowel sounds are present. Extremities: Mild bilateral lower extremity edema. There is a dressing to the left anterior thigh with a small incision that is well approximated. No surrounding erythema. Musculoskeletal. Exhibits strength in all extremities. Psychological: Calm and cooperative. Skin: No rashes or abnormalities seen. DIAGNOSTIC STUDIES/LAB DATA: Sodium 135, potassium 3.9, chloride 97, CO2 of 33 , BUN 16, creatinine 0.72, glucose 154. White blood cell count 15.4, hemoglobin 8.9, hematocrit 28, platelet count 487. CRP 53.59. Please see impression and recommendations outlined above. Thank you for asking us to see Ms. Serrano in consultation. The case has been discussed with my attending, Dr. Torito Rivas, who agrees with the plan of care. Reviewed by JAMAAL OSHEA 09/26/19 1316 [id number]/[facility] #: [id number] CORNELIUS
[2019-09-20] MEDS: Insulin GLARGINE(*) 1 UNITS UNIT SUBCUT SCH (20:56)
[2019-09-21] MEDS: Acetaminophen TAB* 325 MG PO PRN ×4 (00:40→20:28)
[2019-09-21] MEDS: ceFAZolin* 2 GM* Q8H (Duplex) IVPB SCH ×4 (00:40→20:27)
[2019-09-21] MEDS: amLODIPine TAB* 5 MG PO SCH (08:31)
[2019-09-21] MEDS: Metoprolol Tartrate TAB* 25 MG PO SCH ×2 (08:31→20:28)
[2019-09-21] MEDS: Losartan TAB* 25 MG PO SCH (08:31)
[2019-09-21] MEDS: Venlafaxine EXT RELEASE CAP* 75 MG PO SCH ×2 (08:32→08:59)
[2019-09-21] MEDS: Enoxaparin(*) 60 MG/0.6 ML SYR SUBCUT SCH (08:32)
[2019-09-21] MEDS: Nystatin TOP POWDER* 15 GM BTL TOPICAL SCH ×2 (08:33→20:46)
[2019-09-21] MEDS: Insulin LISPRO* 1 UNITS UNIT SUBCUT SCH ×7 (08:57→20:44)
[2019-09-21] MEDS: oxyCODONE TAB* 5 MG TAB PO PRN ×3 (11:38→22:55)
--- NOTE | 2019-09-21 14:41 | PN ---
Subjective Date of Service: 09/21/19 Interval History: Patient seen in bed, no acute distress. Tolerating IV cefazolin well currently on cefazolin 2 gm IV Q 8hrs. bedbound due to body habitus (462 lbs) Past Medical History: Unchanged from Admission Objective Active Medications: Acetaminophen (Tylenol Tab*) 650 mg PO Q6H PRN PRN Reason: MILD PAIN or TEMP > 100.4 Last Admin: 09/21/19 14:10 Dose: 650 mg Albuterol (Ventolin Hfa Inhaler*) 2 puff INH Q4H PRN PRN Reason: SOB/WHEEZING Amlodipine Besylate (Norvasc Tab*) 10 mg PO DAILY SHOAIB Last Admin: 09/21/19 08:31 Dose: 10 mg Dextrose (Dextrose 50% Vial 50 Ml*) 25 ml IV PUSH .FOR FS < 60 - SS PRN PRN Reason: FS < 60 Docusate Sodium (Colace Cap*) 100 mg PO BID PRN PRN Reason: CONSTIPATION Enoxaparin Sodium (Lovenox(*)) 40 mg SUBCUT Q24H SHOAIB Last Admin: 09/21/19 08:32 Dose: 40 mg Heparin Sodium (Porcine) (Heparin Flush Picc/Ml/Cvc(*)) 1 ml FLUSH 0600,1800 SHOAIB; Protocol Last Admin: 09/21/19 05:31 Dose: Not Given Hydralazine HCl (Apresoline Iv*) 5 mg IV SLOW PU Q6H PRN PRN Reason: SBP>180 Last Admin: 09/19/19 11:58 Dose: 5 mg Cefazolin Sodium/Dextrose (Kefzol 2 Gm Premix In Ors(*)) 2 gm in 50 mls @ 100 mls/hr IVPB Q6H SHOAIB Last Admin: 09/21/19 14:01 Dose: 100 mls/hr Insulin Glargine (Lantus(*)) 20 units SUBCUT BEDTIME SHOAIB Last Admin: 09/20/19 20:56 Dose: 20 unit Insulin Human Lispro (Humalog*) 0 units SUBCUT ACHS SHOAIB; Protocol Last Admin: 09/21/19 11:46 Dose: Not Given Insulin Human Lispro (Humalog*) 0 units SUBCUT AC SHOAIB; Protocol Last Admin: 09/21/19 14:01 Dose: 5 units Losartan Potassium (Cozaar Tab*) 100 mg PO DAILY [facility] Last Admin: 09/21/19 08:31 Dose: 100 mg Metoprolol Tartrate (Lopressor Tab*) 25 mg PO BID [facility] Last Admin: 09/21/19 08:31 Dose: 25 mg Nystatin (Nystatin Top Powder*) 1 applic TOPICAL BID [facility] Last Admin: 09/21/19 08:33 Dose: 1 applic Oxycodone HCl (Roxycodone Tab*) 5 mg PO Q4H PRN PRN Reason: PAIN - MODERATE Last Admin: 09/21/19 11:38 Dose: 5 mg Oxycodone HCl (Roxycodone Tab*) 10 mg PO Q4H PRN PRN Reason: PAIN - SEVERE Last Admin: 09/19/19 09:27 Dose: 10 mg Venlafaxine HCl (Effexor Xr Cap*) 300 mg PO DAILY [facility] Last Admin: 09/21/19 08:59 Dose: 300 mg Venlafaxine HCl (Effexor Xr Cap*) 75 mg PO DAILY [facility] Last Admin: 09/21/19 08:32 Dose: 75 mg Vital Signs - 8 hr 09/21/19 09/21/19 09/21/19 07:30 11:38 14:02 Temperature 98.4 F Pulse Rate 71 Respiratory 18 17 16 Rate Blood Pressure 131/69 (mmHg) O2 Sat by Pulse 97 Oximetry Oxygen Devices in Use Now: BiPAP Appearance: awake, alert obese Eyes: - Ears/Nose/Mouth/Throat: - - On BIpap Neck: NL Appearance and Movements; NL JVP, Trachea Midline Respiratory: Symmetrical Chest Expansion and Respiratory Effort, Clear to Auscultation Cardiovascular: NL Sounds; No Murmurs; No JVD Abdominal: - - Obesity. Neurological: Alert and Oriented x 3 Result Diagrams: 09/20/19 05:00 09/20/19 05:00 Assess/Plan/Problems-Billing Assessment: Mrs Serrano 54yo F with PMH of super morbid obesity with a BMI 92, type 2 DM, HTN , HLD, depression, JUSTINE on BiPAP; transferred back [place] [facility] [place] from [facility] for E. coli septicemia secondary to left psoas necrotizing infection. - Patient Problems (1) DVT prophylaxis Current Visit: Yes Status: Acute Code(s): Z29.9 - ENCOUNTER FOR PROPHYLACTIC MEASURES, UNSPECIFIED SNOMED Code(s): 057344359 Comment: - Lovenox 40 mg q 24 hr. (2) E. coli septicemia Current Visit: Yes Status: Acute Code(s): A41.51 - SEPSIS DUE TO ESCHERICHIA COLI [E. COLI] SNOMED Code(s): 757501980 Comment: - ID consult requested. - Continue Cefazolin. E.coli sens. Plan weekly labs including CRP. - Will dicsuss if abx can be transitioned to ceftriaxone (to facilitate transfer ) if not will await bed offer that will accept cefazolin Q8hrs (3) Iliopsoas abscess on left Current Visit: Yes Status: Acute Code(s): K68.12 - PSOAS MUSCLE ABSCESS SNOMED Code(s): 985673258 Comment: - S/p surgical exploration by General Surgery and Ortho at [facility] 09/13. - Continue Cefazolin, E.coli is sens. - tentative plan for 2 more weeks of treatment, ending ? 10/04/19. - ID consult requested. - Will dicsuss if abx can be transitioned to ceftriaxone (to facilitate transfer ) if not will await bed offer that will accept cefazolin Q8hrs (4) Morbid obesity with BMI of 70 and over, adult Current Visit: Yes Status: Acute Code(s): E66.01 - MORBID (SEVERE) OBESITY DUE TO EXCESS CALORIES; Z68.45 - BODY MASS INDEX (BMI) 70 OR GREATER, ADULT SNOMED Code(s): 311103570 Comment: - Refer to [facility] on discharge. BMI 91.7 on 09/20/19. (5) Type 2 diabetes mellitus Current Visit: Yes Status: Acute Comment: - A1c 8.8. - Continue Lantus and Lispro SS.
--- NOTE | 2019-09-21 15:09 | PN ---
Progress Note - Progress Note Date of Service: 09/21/19 SOAP: Subjective: CC: psoas abscess HPI: 54 year old woman with left psoas abscess, attempt at I&D but found inflammatory changes; now on ancef, tolerating it well. Ongoing left flank/hip pain, not worse with movement in bed. No fever, rash, or diarrhea. Objective: Vital Signs Temp 36.9 C 09/21/19 07:30 Pulse 71 09/21/19 07:30 Resp 16 09/21/19 14:02 BP 131/69 09/21/19 07:30 Pulse Ox 97 09/21/19 07:30 Intake & Output 09/20/19 09/21/19 09/21/19 18:59 06:59 18:59 Intake Total 1100 413 480 Output Total 1825 Balance -725 413 480 Weight 462 lb 3.2 oz Intake: IV Fluids 20 45 ns 20 45 IVPB 200 128 Cefazolin 128 ns 200 Oral 880 240 480 Output: [place] 1825 Other: Estimated Void Large # Bowel Movements 1 0 Estimated Stool Amount Medium # Voids 1 Gen:awake, no distress HEENT: no thrush Heart:RRR no murmur Lungs: anterior breath sounds clear Abd:+BS NTND soft Skin: no rash MSK: L posterior hip incision not accessible Laboratory Results - last 24 hr 09/20/19 09/20/19 09/21/19 16:50 20:42 08:45 POC Glucose (mg/dL) 145 H 159 H 143 H 09/21/19 11:40 POC Glucose (mg/dL) 120 H Assessment: 1. Left psoas abscess due to E.coli either hematogenous spread or direct extension from urinary tract infection 2. morbid obesity 3. T2 DM 4. elevated CRP, otherwise improving Plan: 1. ancef 2 gm IV Q6hrs day 07/21 with weekly cbc, cmp, crp 25 minutes floor time >50% face to face in counseling discussing bed bug exterminator antibiotics plans and follow up of her infection
[2019-09-21] MEDS: Lactobacillus Acidophilus* 1 TAB PO SCH (20:28)
[2019-09-21] MEDS: Insulin GLARGINE(*) 1 UNITS UNIT SUBCUT SCH (20:45)
[2019-09-22] MEDS: ceFAZolin* 2 GM* Q8H (Duplex) IVPB SCH ×3 (02:48→14:32)
[2019-09-22] MEDS: oxyCODONE TAB* 5 MG TAB PO PRN ×3 (02:58→14:31)
[2019-09-22] MEDS: Acetaminophen TAB* 325 MG PO PRN ×2 (05:43→12:15)
[2019-09-22] MEDS: Venlafaxine EXT RELEASE CAP* 75 MG PO SCH ×2 (09:47)
[2019-09-22] MEDS: amLODIPine TAB* 5 MG PO SCH (09:48)
[2019-09-22] MEDS: Insulin LISPRO* 1 UNITS UNIT SUBCUT SCH ×4 (09:48→13:18)
[2019-09-22] MEDS: Lactobacillus Acidophilus* 1 TAB PO SCH (09:48)
[2019-09-22] MEDS: Losartan TAB* 25 MG PO SCH (09:48)
[2019-09-22] MEDS: Metoprolol Tartrate TAB* 25 MG PO SCH (09:48)
[2019-09-22] MEDS: Nystatin TOP POWDER* 15 GM BTL TOPICAL SCH (09:50)
[2019-09-22] MEDS: Enoxaparin(*) 60 MG/0.6 ML SYR SUBCUT SCH (09:50)
--- NOTE | 2019-09-22 11:32 | DS ---
DATE OF ADMISSION: 09/17/2019. DATE OF DISCHARGE: 09/22/2019. FINAL DISCHARGE DIAGNOSES: 1. E. coli bacteremia only. 2. Left ileal abscess, psoas muscle abscess secondary to E. coli. 3. Morbid obesity. 4. Diabetes mellitus type 2. HOSPITAL COURSE: The patient presented to [facility] on 09/17/2019 after she underwent in cision and draining of the left ileal psoas abscess at [facility] and was started on IV Cefa zolin. She was transferred back to our facility on September 17. The patient was maintained on Cefa zolin IV antibiotic and today is day number 8 . Infectious Disease saw the patient and recommen ded to complete treatment for at least three weeks. Her antibiotic was adjusted to Cefazolin 2 gm IV q.6 hours. She was seen on a daily basis. She seems stable, tolerating p.o. No fever, no chills. She was offered a bed today at [facility] for short-term rehab and to complete her antibioti c therapy. PHYSICAL EXAMINATION: General: She is morbidly obese, BMI 83. Vital Signs: Temperature 98.2, pulse 72, respirations 16, blood pressure 140/69. HEENT: Head and neck . Extraocular muscles inta ct. Lying flat in bed, in a bariatric bed. Lungs: Limited. Poor breath sounds. Limited to anteri or auscultation and lateral. Abdomen: Large pannus, positive bowel sounds, nontender. Extremities: Multiple skin folds with a left inner groin incision, status post drainage with ABD pad in place. N o sign of erythema. [place] still in place. DIAGNOSTIC STUDIES: CBC: White count 15,000 and stable, hemoglobin 8, hematocrit 28, platelet 487. Chemistry: Significant for potassium 3.9, sodium 135, chloride 97, BUN 16, creatinine 0.7, CRP 53. ESR not performed on admission. DISCHARGE MEDICATIONS: 1. Cefazolin 2 gm IV q.6 hours, day number 9 . 2. Tylenol 650 q.6 prn. 3. Albuterol prn. 4. Amlodipine 10 daily. 5. Colace 100 b.i.d. 6. Lovenox 40 daily. 7. Heparin via flush line in the right anterior cubital. 8. Insulin sliding scale with coverage. 9. Lactobacillus one tab b.i.d. 10. Metoprolol 25 b.i.d. 11. Nystatin powder topically. 12. Oxycodone 5 mg q.4 prn for mild to moderate and 10 mg q.4 for severe. 13. Albuterol inhaler. 14. Amlodipine 10 daily. 15. Celebrex 200 b.i.d. 16. Lovenox 40 subcu daily. 17. Ezetimibe 10 mg daily. 18. Flovent two puffs b.i.d. 19. Loratadine 10 daily. 20. Lorazepam 1 mg b.i.d. 21. Losartan 100 mg daily. 22. Metformin 1,000 b.i.d. 23. Multivitamin daily. 24. Prandin 1 mg p.o. t.i.d. 25. Simvastatin 80 at bedtime. 26. Januvia 50 mg daily. 27. Effexor 375 mg daily. DISCHARGE RECOMMENDATIONS: Continue antibiotic as recommended. Follow-up with Dr. Rivas in about seven to ten days, as long as he follows up before the completion of the infusion as she may require bridging with oral antibiotic at the end. Staple to be removed in about seven to ten days from her inner groin area. DISPOSITION: To [facility] in [place]. CONDITION ON DISCHARGE: Stable. [id number]/[facility] #: [id number]
--- NOTE | 2019-09-22 11:54 | PN ---
Hospitalist Progress Note Date of Service: 09/22/19 Clarifications: Please disregard to rate setting on the CPAP order. There should be no rate setting for the CPAP
[2019-09-22 12:02] VITALS: BP 127/51
== END 2019-09-22 14:50 | DRG 372 ==
LOC: MED 09-17 11:21
PROVIDERS: ADMIT Internal Medicine; ATTEND Internal Medicine
DX: K68.12 Psoas muscle abscess (principal); Z68.45 Body mass index [BMI] 70 or greater, adult; R78.81 Bacteremia; M60.052 Infective myositis, left thigh; B96.20 Unspecified Escherichia coli [E. coli] as the cause of diseases classified elsewhere; E66.01 Morbid (severe) obesity due to excess calories; I10 Essential (primary) hypertension; E78.5 Hyperlipidemia, unspecified; E87.70 Fluid overload, unspecified; E11.65 Type 2 diabetes mellitus with hyperglycemia; F32.9 Major depressive disorder, single episode, unspecified; G47.33 Obstructive sleep apnea (adult) (pediatric); B37.2 Candidiasis of skin and nail; Z99.89 Dependence on other enabling machines and devices; Z79.899 Other long term (current) drug therapy; Z79.4 Long term (current) use of insulin; Z79.891 Long term (current) use of opiate analgesic; Z80.42 Family history of malignant neoplasm of prostate; Z80.0 Family history of malignant neoplasm of digestive organs
CPT/HCPCS: 36415; 80048; 80053; 85025; 86140; 93005; 94660; A9270-GY; G8978-GP-CM; G8978-GP-CN; G8979-GP-CH; G8979-GP-CK; J0360; J0690; J1650; J1940